=== PATIENT | male | born 1955 | race Caucasian/White ===

== ENCOUNTER 2021-01-19 10:22 | Inpatient (IN) | payer BC ==
--- NOTE | 2021-01-19 10:48 | ED ---
General Adult HPI - General Chief complaint: Chest Pain Stated complaint: Abd EKG/sent by PCP Time Seen by Provider: 01/19/21 10:25 Source: patient Mode of arrival: ambulatory Limitations: no limitations - History of Present Illness Initial comments: Dictation was produced using [employer] dictation software. please excuse any grammatical, word or spelling errors. Chief Complaint: 65-year-old male presents to the emergency department for heart block History of Present Illness: Is 65-year-old male who has past medical history of hypertension and he presents to the emergency department from primary care physician's office for heart block. Patient was initially seen in the primary care physician's office for possible Lyme disease. [place]. He discovered that a tick was on his right trapezius area. He is not prolonged at tick was on their however is having pain. Patient has no history of bradycardia or cardiology disease. He takes anti-hypertensive medications. Patient states he's been feeling rather fatigued however has not noticed any lightheadedness dizziness. He was seen at primary care physician's office and was noted to have bradycardia and complete heart block. The ROS documented in this emergency department record has been reviewed and confirmed by me. Those systems with pertinent positive or negative responses have been documented in the HPI. All other systems are other negative and/or noncontributory. PHYSICAL EXAM: General Impression: Alert and oriented x3, not in acute distress HEENT: Normocephalic atraumatic, extra-ocular movements intact, pupils equal and reactive to light bilaterally, mucous membranes moist. Cardiovascular: Heart regular rate and rhythm Chest: Able to complete full sentences, no retractions, no tachypnea Abdomen: abdomen soft, non-tender, non-distended, no organomegaly Musculoskeletal: Pulses present and equal in all extremities, no peripheral edema Motor: no focal deficits noted Neurological: CN II-XII grossly intact, no focal motor or sensory deficits noted Skin: Intact with no visualized rashes Psych: Normal affect and mood ED course: 65-year-old male presents to the emergency department for heart block. As upon arrival shows heart rate of 34, rest of vital signs within acceptable limits. He did take a picture of the tick and it does look like the Ixodes tick. EKG shows third-degree heart block. Clinical presentation highly suspicious of heart block secondary to Lyme disease patient started on IV ceftriaxone. Lyme carditis. Case was discussed emergently with cardiology. They reviewed EKG and evaluated the patient at bedside. Patient is well-appearing with stable vital signs besides the bradycardia. Car diology does not feel patient needs to be admitted to intensive care unit. Patient started on ceftriaxone. Patient will be admitted for cardiology monitoring, ID consult EKG interpretation: Ventricular rate 34, AV dissociation, QRS 86, QTC 375. No LA prolongation, no QTC prolongation, no ST or T-wave changes noted. EKG indicative of third degree heart block. - Related Data Home Medications Medication Instructions Recorded Confirmed Aspirin EC [Ecotrin] 81 mg PO HS 03/02/15 01/19/21 Multivitamins, Thera [Theragran] 1 tab PO DAILY 03/02/15 01/19/21 [place]-3 Fatty Acids/Fish Oil [Fish 1 cap PO DAILY 03/02/15 01/19/21 Oil 1,000 mg Softgel] amLODIPine BESYLATE/BENAZEPRIL 1 cap PO BID 03/02/15 01/19/21 [Amlodipine-Benazepril 5-10 mg] Cetirizine HCl [Zyrtec] 10 mg PO HS 01/19/21 01/19/21 Potassium Gluconate 99 mg PO DAILY 01/19/21 01/19/21 Allergies Allergy/AdvReac Type Severity Reaction Status Date / Time No Known Allergies Allergy Verified 01/19/21 11:21 Review of Systems ROS Statement: Those systems with pertinent positive or pertinent negative responses have been documented in the HPI. ROS Other: All systems not noted in ROS Statement are negative. Past Medical History Past Medical History: Hypertension History of Any Multi-Drug Resistant Organisms: None Reported Additional Past Surgical History / Comment(s): VASECTOMY, REPAIR LIGAMENTS LEFT ELBOW. Past Anesthesia/Blood Transfusion Reactions: No Reported Reaction Past Psychological History: No Psychological Hx Reported Smoking Status: Never smoker Past Alcohol Use History: None Reported Past Drug Use History: None Reported - Past Family History Mother Family Medical History: No Reported History General Exam Limitations: no limitations Course Vital Signs 01/19/21 01/19/21 10:24 11:30 Temperature 98.1 F Pulse Rate 34 L 31 L Respiratory 16 19 Rate Blood Pressure 167/58 115/69 O2 Sat by Pulse 96 96 Oximetry Medical Decision Making - Lab Data Result diagrams: 01/19/21 10:51 01/19/21 10:51 Lab Results 01/19/21 01/19/21 01/19/21 Range/Units 10:51 10:51 10:51 WBC 6.6 (3.8-10.6) k/uL RBC 4.89 (4.30-5.90) m/uL Hgb 15.1 (13.0-17.5) gm/dL Hct 43.8 (39.0-53.0) % MCV 89.5 (80.0-100.0) fL MCH 30.8 (25.0-35.0) pg MCHC 34.4 (31.0-37.0) g/dL RDW 13.5 (11.5-15.5) % Plt Count 198 (150-450) k/uL MPV 7.0 Neutrophils % 66 % Lymphocytes % 22 % Monocytes % 6 % Eosinophils % 3 % Basophils % 1 % Neutrophils # 4.3 (1.3-7.7) k/uL Lymphocytes # 1.5 (1.0-4.8) k/uL Monocytes # 0.4 (0-1.0) k/uL Eosinophils # 0.2 (0-0.7) k/uL Basophils # 0.1 (0-0.2) k/uL PT 10.0 (9.0-12.0) sec INR 0.9 (<1.2) APTT 22.5 (22.0-30.0) sec Sodium 140 (137-145) mmol/L Potassium 4.2 (3.5-5.1) mmol/L Chloride 107 (98-107) mmol/L Carbon Dioxide 27 (22-30) mmol/L Anion Gap 6 mmol/L BUN 22 H (9-20) mg/dL Creatinine 0.76 (0.66-1.25) mg/dL Est GFR (CKD-EPI)AfAm >90 (>60 ml/min/1.73 sqM) Est GFR (CKD-EPI)NonAf >90 (>60 ml/min/1.73 sqM) Glucose 115 H (74-99) mg/dL Plasma Lactic Acid Moody (0.7-2.0) mmol/L Calcium 9.7 (8.4-10.2) mg/dL Magnesium 1.9 (1.6-2.3) mg/dL 01/19/21 Range/Units 10:51 WBC (3.8-10.6) k/uL RBC (4.30-5.90) m/uL Hgb (13.0-17.5) gm/dL Hct (39.0-53.0) % MCV (80.0-100.0) fL MCH (25.0-35.0) pg MCHC (31.0-37.0) g/dL RDW (11.5-15.5) % Plt Count (150-450) k/uL MPV Neutrophils % % Lymphocytes % % Monocytes % % Eosinophils % % Basophils % % Neutrophils # (1.3-7.7) k/uL Lymphocytes # (1.0-4.8) k/uL Monocytes # (0-1.0) k/uL Eosinophils # (0-0.7) k/uL Basophils # (0-0.2) k/uL PT (9.0-12.0) sec INR (<1.2) APTT (22.0-30.0) sec Sodium (137-145) mmol/L Potassium (3.5-5.1) mmol/L Chloride (98-107) mmol/L Carbon Dioxide (22-30) mmol/L Anion Gap mmol/L BUN (9-20) mg/dL Creatinine (0.66-1.25) mg/dL Est GFR (CKD-EPI)AfAm (>60 ml/min/1.73 sqM) Est GFR (CKD-EPI)NonAf (>60 ml/min/1.73 sqM) Glucose (74-99) mg/dL Plasma Lactic Acid Moody 0.8 (0.7-2.0) mmol/L Calcium (8.4-10.2) mg/dL Magnesium (1.6-2.3) mg/dL Critical Care Time Critical Care Time: Yes Total Critical Care Time: 33 Disposition Clinical Impression: Heart block, Lyme disease Disposition: ADMITTED IP TO THIS [facility] Condition: Critical Referrals: Catalino Marin MD [Primary Care Provider] - 1-2 days
[2021-01-19] MEDS ORDERED: cefTRIAXone IN SWFI 1,000 MG/10 ML SYRINGE IVP STA (10:55)
[2021-01-19] MEDS ORDERED: cefTRIAXone IN SWFI 1,000 MG/10 ML SYRINGE IVP ONE (11:00)
[2021-01-19] MEDS ORDERED: DOXYCYCLINE 100 MG CAP PO SCH (11:00)
[2021-01-19 11:08] LABS: Basophils # (A) 0.1 k/uL (0-0.2); Basophils % (A) 1 %; Eosinophils # (A) 0.2 k/uL (0-0.7); Eosinophils % (A) 3 %; HCT 43.8 % (39.0-53.0); HGB 15.1 gm/dL (13.0-17.5); Lymphocytes # (A) 1.5 k/uL (1.0-4.8); Lymphocytes % (A) 22 %; MCH 30.8 pg (25.0-35.0); MCHC 34.4 g/dL (31.0-37.0); MCV 89.5 fL (80.0-100.0); Monocytes # (A) 0.4 k/uL (0-1.0); Monocytes % (A) 6 %; Neutrophils # (A) 4.3 k/uL (1.3-7.7); Neutrophils % (A) 66 %; Platelet Count 198 k/uL (150-450); RBC 4.89 m/uL (4.30-5.90); RDW 13.5 % (11.5-15.5); WBC 6.6 k/uL (3.8-10.6)
[2021-01-19 11:16] LABS: African American GFR (CKD) >90 (>60 ml/min/1.73 sqM); Anion Gap 6 mmol/L; Blood Urea Nitrogen 22 mg/dL (9-20); Calcium 9.7 mg/dL (8.4-10.2); Carbon Dioxide 27 mmol/L (22-30); Chloride 107 mmol/L (98-107); Glucose 115 mg/dL (74-99); Magnesium 1.9 mg/dL (1.6-2.3); Non-African American GFR(CKD) >90 (>60 ml/min/1.73 sqM); Potassium 4.2 mmol/L (3.5-5.1); Sodium 140 mmol/L (137-145)
--- NOTE | 2021-01-19 11:23 | XR ---
EXAMINATION TYPE: XR chest 1V portable DATE OF EXAM: 01/19/2021 COMPARISON: NONE HISTORY: Bradycardia and heart block TECHNIQUE: Single frontal view of the chest is obtained. FINDINGS: Heart size is enlarged. Atherosclerotic tortuous aorta. No pleural effusion, focal consoli dation or pneumothorax is seen. The right costophrenic angle is not visualized laterally. IMPRESSION: 1. Cardiomegaly and atherosclerotic aorta. 2. The Right lateral costophrenic angle is not visualized. No acute pulmonary disease.
[2021-01-19 11:29] LABS: INR 0.9 (<1.2); Partial Thromboplastin Time 22.5 sec (22.0-30.0)
[2021-01-19] MEDS ORDERED: NALOXONE 0.4 MG/ML 1 ML VIAL IV PRN (11:38)
--- NOTE | 2021-01-19 11:57 | P.CRDCN ---
History of Present Illness History of present illness: HISTORY OF PRESENTING ILLNESS This is a pleasant 65-year-old male past medical history significant for hypertension. 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 We have been asked to see in consultation for heart block. He presented to to his PCPs office this morning after finding a tick on his neck. He was found to have a low heart rate and an EKG obtained revealed A-V dissociation. He was sent to the emergency department with his . He is seen and examined sitting up on the stretcher in no acute distress. He has no symptoms of chest pain, shortness of breath, dizziness or palpitations. He states he may have been more fatigued last night than usual however this is not even thought to be significant per his . EKG obtained here again reveals complete A-V dissociation with heart rate of 34. Chest x-ray reveals cardiomegaly and atherosclerotic aorta. Laboratory data reviewed, CBC unremarkable, sodium 140, potassium 4.2, creatinine 0.76, magnesium 1.9, troponin negative 1 and TSH 1.56. He was given one dose of Rocephin on admission. Infectious disease is consulted to see the patient as well. Continue cardiac medications include amlodipine/benazepril 5/10 mg twice a day and aspirin 81 mg daily. REVIEW OF SYSTEMS At the time of my exam: CONSTITUTIONAL: Denies fever or chills. CARDIOVASCULAR: Denies chest pain, shortness of breath, orthopnea, PND or palpitations. RESPIRATORY: Denies cough. GASTROINTESTINAL: Denies abdominal pain, diarrhea, constipation, nausea or vomiting. MUSCULOSKELETAL: Denies myalgias. NEUROLOGIC: Denies numbness, tingling, headacbe or weakness. ENDOCRINE: Denies fatigue, weight change, polydipsia or polyurina. GENITOURINARY: Denies burning, hematuria or urgency with micturation. HEMATOLOGIC: Denies history of anemia or bleeding. PHYSICAL EXAMINATION Blood pressure 115/69 heart rate 31 afebrile and maintaining oxygen saturation on room air. CONSTITUTIONAL: No apparent distress. HEENT: Head is normocephalic. Pupils are equal, round. Sclerae anicteric. Mucous membranes of the mouth are moist. No JVD. No carotid bruit. CHEST EXAMINATION: Lungs are clear to auscultation. No chest wall tenderness is noted on palpation or with deep breathing. HEART EXAMINATION: Regular, slow rate and rhythm. S1, S2 heard. Soft systolic ejection murmur at the base, no gallops or rub. ABDOMEN: Soft, nontender. Positive bowel sounds. EXTREMITIES: 2+ peripheral pulses, no lower extremity edema and no calf tenderness. NEUROLOGIC EXAMINATION: Patient is awake, alert and oriented x3. ASSESSMENT Incomplete heart block, asymptomatic and hemodynamically stable Recent tick bite Hypertension Obesity, BMI 33 PLAN Continue ongoing close telemetry monitoring. If in fact the patient has Lyme disease this is a reversible cause for complete heart block. ID is following and ceftriaxone has been initiated. We recommend close monitoring and pacer pads in place in the event he becomes unstable or symptomatic. Avoid all rate lowering medications. Obtain 2-D echocardiogram and Doppler study to assess cardiac structure and function. Further recommendations to follow based on clinical course. Thank you kindly for this consultation. Nurse Practitioner note has been reviewed, I agree with a documented findings and plan of care. Patient was seen and examined. Past Medical History Past Medical History: Hypertension History of Any Multi-Drug Resistant Organisms: None Reported Additional Past Surgical History / Comment(s): VASECTOMY, REPAIR LIGAMENTS LEFT ELBOW. Past Anesthesia/Blood Transfusion Reactions: No Reported Reaction Past Psychological History: No Psychological Hx Reported Smoking Status: Never smoker Past Alcohol Use History: None Reported Past Drug Use History: None Reported - Past Family History Mother Family Medical History: No Reported History Medications and Allergies Home Medications Medication Instructions Recorded Confirmed Type Aspirin EC [Ecotrin] 81 mg PO HS 03/02/15 01/19/21 History Multivitamins, Thera [Theragran] 1 tab PO DAILY 03/02/15 01/19/21 History [place]-3 Fatty Acids/Fish Oil [Fish 1 cap PO DAILY 03/02/15 01/19/21 History Oil 1,000 mg Softgel] amLODIPine BESYLATE/BENAZEPRIL 1 cap PO BID 03/02/15 01/19/21 History [Amlodipine-Benazepril 5-10 mg] Cetirizine HCl [Zyrtec] 10 mg PO HS 01/19/21 01/19/21 History Potassium Gluconate 99 mg PO DAILY 01/19/21 01/19/21 History Allergies Allergy/AdvReac Type Severity Reaction Status Date / Time No Known Allergies Allergy Verified 01/19/21 11:21 Physical Exam Vitals: Vital Signs Temp Pulse Resp BP Pulse Ox 01/19/21 10:24 98.1 F 34 L 16 167/58 96 Intake and Output 01/18/21 01/19/21 01/19/21 22:59 06:59 14:59 Other: Weight 106.594 kg Results 01/19/21 10:51 01/19/21 10:51 CBC 01/19/21 Range/Units 10:51 WBC 6.6 (3.8-10.6) k/uL RBC 4.89 (4.30-5.90) m/uL Hgb 15.1 (13.0-17.5) gm/dL Hct 43.8 (39.0-53.0) % Plt Count 198 (150-450) k/uL Current Medications Generic Name Dose Route Start Last Admin Trade Name Freq PRN Reason Stop Dose Admin Ceftriaxone Sodium 2 gm/ 50 mls @ 100 mls/hr 01/20/21 09:00 Sodium Chloride IVPB DAILY GUADALUPE Intake and Output 01/18/21 01/19/21 01/19/21 22:59 06:59 14:59 Other: Weight 106.594 kg Patient Weight 01/20/21 06:59 Weight 106.594 kg 01/19/21 10:51
[2021-01-19] MEDS ORDERED: ISOPROTERENOL IV SCH (20:15)
[2021-01-19] MEDS: ASPIRIN 81 MG PO SCH (20:40)
[2021-01-19] MEDS: LORATADINE 10 MG TAB PO SCH (20:40)
[2021-01-19] MEDS: lisinopriL 10 MG TAB PO SCH (20:40)
[2021-01-19] MEDS: amLODIPine 5 MG TAB PO SCH (20:40)
[2021-01-19 21:16] LABS: Glucose,Whole Blood 127 mg/dL (75-99)
[2021-01-19] MEDS: ISOPROTERENOL 1,000 MCG in DEXTROSE 5% IN WATER 250 ML IV SCH ×2 (21:31)
[2021-01-19] MEDS: SODIUM CHLORIDE 0.9% 1,000 ML IV SCH (21:37)
[2021-01-19] MEDS ORDERED: hydrALAZINE HCL 20 MG/ML 1 ML VIAL IVP PRN (22:16)
--- NOTE | 2021-01-19 23:23 | CONS ---
CONSULTATION DATE OF SERVICE: 01/19/2021 REASON FOR CONSULTATION: Lyme carditis. HISTORY OF PRESENT ILLNESS: The patient is a 65-year-old male who [place] about a week and a half ago. Patient mentioned he did have a couple of ticks on his leg that he brushed off and at the end of the trip, he has been examined. There was no tick or rash to him. The patient subsequently came back and noticed a small knot on his upper back area yesterday. The patient thought he was growing a mole and did not pay any attention to it. This morning the area slightly hurt. He asked his to check on it. The noticed there was a tick attached to him, which should pulled out with a tweezer. Patient had slight swelling and induration at the area. The patient subsequently went to see his primary care physician to get checked out. The patient did not have any symptoms of any fever or any chills. No chest pain, shortness of breath. No nausea, no vomiting. No dizziness. At the primary care physician's office, the patient was noticed to be bradycardic and did have AV dissociation. Subsequently, the patient was sent to the ER for further evaluation. The patient was started on Rocephin and has been admitted to the hospital for close monitoring. Infectious disease was consulted for further management. The patient has been afebrile. White count has been normal. Lyme serology has been requested, which is currently pending. REVIEW OF SYSTEMS: Positive points have been mentioned in HPI. Rest of systems are negative. PAST MEDICAL HISTORY: Hypertension. PAST SURGICAL HISTORY: Vasectomy, ligaments repaired left elbow. SOCIAL HISTORY: No smoking, drinking or drug use. FAMILY HISTORY: No pertinent findings noticed. ALLERGIES: No known drug allergies. MEDICATIONS: The patient is currently on Norvasc, aspirin, Rocephin 2 grams daily. He is on hydralazine, Zestril, Ferritin, Theragran, Narcan and IV fluid. PHYSICAL EXAMINATION: Blood pressure 155/70 with a pulse of 91, temperature 97.8. He is 96% on room air. General description is a middle-aged male lying in bed in no distress. No tachypnea or accessory muscles of respiration use. HEENT: Examination shows no pallor or scleral icterus. Oral mucous membranes dry. NECK: Trachea central. No thyromegaly. LUNGS: Unlabored breathing. Clear to auscultation. No wheeze or crackles. HEART S1, S2. Regular rate and rhythm. ABDOMEN: Soft, no tenderness. No guarding. No rigidity. EXTREMITIES: No edema of the feet. Examination right of the upper back area did have mild area of induration where the patient did have a tick attached with no surrounding redness or any drainage. NEUROLOGICAL: Patient is awake, alert, oriented x3. Mood and affect normal. LABS: Hemoglobin is 15.1, white count 6.6, BUN of 22, creatinine 0.76. DIAGNOSTIC IMPRESSION AND PLAN: Patient admitted in the hospital with recent tick bite which apparently has been attached for less than 24 hours. The patient did have a bradyarrhythmia with AV dissociation which is usually a feature of Lyme carditis with tick borne illnesses. The patient more likely has been exposed [place] and more likely responsible for his current symptomatology rather than the tick that was attached to him. PLAN: 1. We will follow the results of the Lyme serology. 2. Rocephin 2 g IV piggyback daily. 3. Close call cardiac monitoring. 4. We will follow on his clinical condition and further adjust medication if needed. Thank you for this consultation. We will follow this patient along with you. MMODL / IJN: [id number] /
[2021-01-20 04:29] LABS: Basophils # (A) 0.1 k/uL (0-0.2); Basophils % (A) 1 %; Eosinophils # (A) 0.1 k/uL (0-0.7); Eosinophils % (A) 1 %; HCT 44.3 % (39.0-53.0); HGB 14.3 gm/dL (13.0-17.5); Lymphocytes # (A) 1.2 k/uL (1.0-4.8); Lymphocytes % (A) 18 %; MCH 29.3 pg (25.0-35.0); MCHC 32.3 g/dL (31.0-37.0); MCV 90.8 fL (80.0-100.0); Monocytes # (A) 0.4 k/uL (0-1.0); Monocytes % (A) 6 %; Neutrophils % (A) 72 %; Platelet Count 182 k/uL (150-450); RBC 4.88 m/uL (4.30-5.90); RDW 13.9 % (11.5-15.5); WBC 6.9 k/uL (3.8-10.6)
[2021-01-20 04:45] LABS: ALT 28 U/L (4-49); AST 47 U/L (17-59); African American GFR (CKD) >90 (>60 ml/min/1.73 sqM); Albumin 4.1 g/dL (3.5-5.0); Alkaline Phosphatase 56 U/L (38-126); Anion Gap 7 mmol/L; Blood Urea Nitrogen 15 mg/dL (9-20); C Reactive Protein 0.7 mg/dL (<1.0); Carbon Dioxide 27 mmol/L (22-30); Chloride 103 mmol/L (98-107); Glucose 99 mg/dL (74-99); Magnesium 1.8 mg/dL (1.6-2.3); Non-African American GFR(CKD) >90 (>60 ml/min/1.73 sqM); Potassium 3.3 mmol/L (3.5-5.1); Sodium 137 mmol/L (137-145); Total Bilirubin 0.6 mg/dL (0.2-1.3); Total Protein 6.9 g/dL (6.3-8.2)
[2021-01-20] MEDS: POTASSIUM CHLORIDE ER 20 MEQ TAB.ER PO SCH ×2 (04:58→05:06)
[2021-01-20 05:19] LABS: Erythrocyte Sedimentation Rate 8 mm/hr (0-15)
[2021-01-20] MEDS ORDERED: Potassium Replacement Protocol 1 EACH MISC MISCELLANE PRN (06:45)
[2021-01-20] MEDS ORDERED: POTASSIUM CHLORIDE 10 MEQ in WATER FOR INJECTION 1 100ML.BAG IVPB SCH (07:00)
--- NOTE | 2021-01-20 08:17 | P.HPIM ---
History of Present Illness H&P Date: 01/20/21 Chief Complaint: AV heart block 65-year-old male is admitted to the hospital with AV heart block, and post tick bite possible lymes disease. Patient was sent to the emergency department for bradycardia with AV block. Patient was evaluated by emergency department revealing AV block dissociation. Patient has significant medical history of hypertension, past infection of Covid 19, and obesity. Patient was admitted with cardiology consult, cardiology saw patient in the emergency department, patient was admitted to 3 S. during the night patient had severe bradycardia in the 20s, cardiology was contacted patient was transferred to the intensive care unit. Patient was placed on isoproterenol for severe bradycardia, when evaluating patient this a.m. heart rate in the low 40s.Upon evaluation this a.m., patient resting comfortably in bed. Patient endorses mild fatigue. Patient denies fever, chills, shortness of breath, chest pain, palpitations, abdominal pain, nausea, vomiting or diarrhea. Awaiting recommendations from cardiology for possible pacemaker placement. Review of Systems Constitutional: Reports fatigue Ears, nose, mouth and throat: Reports as per HPI Cardiovascular: Reports as per HPI Respiratory: Reports as per HPI Gastrointestinal: Reports as per HPI Genitourinary: Reports as per HPI Musculoskeletal: Reports as per HPI Integumentary: Reports wounds (Trapezius post tick bite) Neurological: Reports as per HPI Psychiatric: Reports as per HPI Endocrine: Reports as per HPI Hematologic/Lymphatic: Reports as per HPI Allergic/Immunologic: Reports as per HPI Past Medical History Past Medical History: Hypertension Additional Past Medical History / Comment(s): basal cell Ca History of Any Multi-Drug Resistant Organisms: None Reported Additional Past Surgical History / Comment(s): VASECTOMY, REPAIR LIGAMENTS LEFT ELBOW. retina repaired Mohs surg.lt check Past Anesthesia/Blood Transfusion Reactions: No Reported Reaction Past Psychological History: No Psychological Hx Reported Smoking Status: Current every day smoker Past Alcohol Use History: None Reported Past Drug Use History: None Reported - Past Family History Mother Family Medical History: No Reported History Medications and Allergies Home Medications and Allergies Comment(s): Medications and allergies reviewed Home Medications Medication Instructions Recorded Confirmed Type Aspirin EC [Ecotrin] 81 mg PO HS 03/02/15 01/19/21 History Multivitamins, Thera [Theragran] 1 tab PO DAILY 03/02/15 01/19/21 History [place]-3 Fatty Acids/Fish Oil [Fish 1 cap PO DAILY 03/02/15 01/19/21 History Oil 1,000 mg Softgel] amLODIPine BESYLATE/BENAZEPRIL 1 cap PO BID 03/02/15 01/19/21 History [Amlodipine-Benazepril 5-10 mg] Cetirizine HCl [Zyrtec] 10 mg PO HS 01/19/21 01/19/21 History Potassium Gluconate 99 mg PO DAILY 01/19/21 01/19/21 History Allergies Allergy/AdvReac Type Severity Reaction Status Date / Time No Known Allergies Allergy Verified 01/19/21 11:21 Physical Exam Vitals: Vital Signs Temp Pulse Pulse Resp BP BP Pulse Ox 01/20/21 07:00 42 L 15 128/57 97 01/20/21 06:45 37 L 16 135/67 96 01/20/21 06:30 41 L 12 135/59 98 01/20/21 06:15 39 L 14 155/67 96 01/20/21 06:00 41 L 8 L 140/64 94 L 01/20/21 05:45 38 L 17 134/67 95 01/20/21 05:30 39 L 15 152/77 97 01/20/21 05:15 41 L 10 L 149/62 94 L 01/20/21 05:00 44 L 12 147/58 95 01/20/21 04:45 39 L 14 138/63 96 01/20/21 04:30 37 L 14 135/57 94 L 01/20/21 04:15 37 L 16 147/60 96 01/20/21 04:00 38 L 12 144/61 95 01/20/21 03:45 39 L 16 147/75 95 01/20/21 03:30 37 L 16 144/56 96 01/20/21 03:15 37 L 12 150/92 95 01/20/21 03:00 39 L 12 115/64 95 01/20/21 02:45 42 L 20 130/54 95 01/20/21 02:30 39 L 16 122/55 94 L 01/20/21 02:15 38 L 26 H 127/47 94 L 01/20/21 02:00 37 L 18 126/57 94 L 01/20/21 01:45 46 L 20 120/64 95 01/20/21 01:30 37 L 18 124/53 95 01/20/21 01:15 38 L 20 123/52 95 01/20/21 01:00 39 L 26 H 121/47 95 01/20/21 00:45 39 L 16 133/52 94 L 01/20/21 00:30 37 L 14 132/65 94 L 01/20/21 00:23 39 L 9 L 132/65 95 01/20/21 00:15 41 L 12 123/51 98 01/20/21 00:00 97.8 F 37 L 18 128/55 90 L 01/19/21 23:45 41 L 12 134/62 91 L 01/19/21 23:30 42 L 20 129/54 89 L 01/19/21 23:15 41 L 20 142/63 89 L 01/19/21 23:00 41 L 9 L 141/67 98 01/19/21 22:45 39 L 14 155/74 98 01/19/21 22:30 46 L 14 166/68 01/19/21 22:15 41 L 18 154/141 95 01/19/21 22:00 41 L 24 167/128 97 01/19/21 21:45 44 L 14 148/118 97 01/19/21 21:30 31 L 16 137/68 96 01/19/21 21:15 31 L 20 137/68 97 01/19/21 21:10 21 01/19/21 19:50 97.8 F 29 L 17 165/71 96 01/19/21 19:02 31 L 16 176/72 97 01/19/21 16:07 29 L 18 157/66 96 01/19/21 14:41 31 L 19 135/94 97 01/19/21 13:30 29 L 17 131/59 97 01/19/21 12:49 30 L 18 142/57 97 01/19/21 11:30 31 L 19 115/69 96 01/19/21 10:24 98.1 F 34 L 16 167/58 96 Intake and Output 01/19/21 01/20/21 01/20/21 22:59 06:59 14:59 Intake Total 49.69 160 20 Output Total 400 400 0 Balance -350.31 -240 20 Intake: Intake, IV Titration 49.69 160 20 Amount Isoproterenol 1,000 mcg 9.69 In Dextrose 5% in Water 250 ml @ Per Protocol IV .[facility] Rx#:[id number] Sodium Chloride 0.9% 1, 40 160 20 000 ml @ 20 mls/hr IV . Q24H [facility] Rx#:[id number] Output: Urine 400 400 0 Other: Voiding Method Urinal Urinal Weight 106.594 kg 112.5 kg - Constitutional General appearance: cooperative, obese - EENT Eyes: EOMI, PERRLA, normal appearance ENT: normal oropharynx Ears: bilateral: normal - Neck Neck: normal ROM Carotids: bilateral: upstroke normal - Respiratory Respiratory: bilateral: CTA - Cardiovascular AV heart block disassociation Heart rate: 42 Rhythm: regular Heart sounds: normal: S1, S2 radial pulse Peripheral Pulses: bilateral: Normal dorsalis pedis Peripheral Pulses: bilateral: Normal - Gastrointestinal General gastrointestinal: normal bowel sounds - Integumentary Integumentary: normal turgor - Neurologic Neurologic: CNII-XII intact - Musculoskeletal Musculoskeletal: gait normal - Psychiatric Psychiatric: A&O x's 3, appropriate affect, intact judgment & insight Results CBC & Chem 7: 01/20/21 04:02 01/20/21 04:02 Labs: Abnormal Lab Results - Last 24 Hours (Table) 01/19/21 01/19/21 01/20/21 Range/Units 10:51 21:14 04:02 Potassium 3.3 L (3.5-5.1) mmol/L BUN 22 H (9-20) mg/dL Glucose 115 H (74-99) mg/dL POC Glucose (mg/dL) 127 H (75-99) mg/dL Chest x-ray: report reviewed Thrombosis Risk Factor Assmnt - Choose All That Apply Each Risk Factor Represents 2 Points: Age 61-74 years Thrombosis Risk Factor Assessment Total Risk Factor Score: 2 Thrombosis Risk Factor Assessment Level: Low Risk Assessment and Plan Assessment: AV heart block disassociation post tick bite, possible Lyme disease Hypertension hypokalemia History of Covid infection obesity full code Plan: AV heart block disassociation, consultation with cardiology for recommendations and treatment plan, Continue isoproterenol drip per cardiology post tick bite, awaiting lymes serology panel, consultation with infectious disease, Continue IV Rocephin Hypertension, continue antihypertensives. Continue to monitor vital signs and diagnostic testing results continue home medications further recommendations to come patient patient's clinical condition Time with Patient: Greater than 30
[2021-01-20] MEDS: lisinopriL 10 MG TAB PO SCH ×2 (08:57→20:52)
[2021-01-20] MEDS: MULTIVITAMINS, THERA 1 EACH TAB PO SCH (08:57)
[2021-01-20] MEDS: amLODIPine 5 MG TAB PO SCH ×2 (08:57→20:52)
[2021-01-20] MEDS ORDERED: NON FORMULARY DRUG (Potassium Gluconate [Potassium Gluconate] 99 MG Tablet.Er) PO SCH (09:00)
[2021-01-20] MEDS ORDERED: NON FORMULARY DRUG (Omega-3 Fatty Acids/Fish Oil [Fish Oil 1,000 Mg Softgel] 1 EACH Capsul PO SCH (09:00)
--- NOTE | 2021-01-20 12:37 | P.PN ---
Subjective Progress Note Date: 01/20/21 HISTORY OF PRESENTING ILLNESS This is a pleasant 65-year-old male past medical history significant for hypertension. 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 We have been asked to see in consultation for heart block. He presented to to his PCPs office this morning after finding a tick on his neck. He was found to have a low heart rate and an EKG obtained revealed A-V dissociation. He was sent to the emergency department with his . He is seen and examined sitting up on the stretcher in no acute distress. He has no symptoms of chest pain, shortness of breath, dizziness or palpitations. He states he may have been more fatigued last night than usual however this is not even thought to be significant per his . EKG obtained here again reveals complete A-V dissociation with heart rate of 34. Chest x-ray reveals cardiomegaly and atherosclerotic aorta. Laboratory data reviewed, CBC unremarkable, sodium 140, potassium 4.2, creatinine 0.76, magnesium 1.9, troponin negative 1 and TSH 1.56. He was given one dose of Rocephin on admission. Infectious disease is consulted to see the patient as well. Continue cardiac medications include amlodipine/benazepril 5/10 mg twice a day and aspirin 81 mg daily. 01/20/2021 Patient examined this morning in the ICU. Patient denies chest pain or pressure. Denies shortness of breath. Denies dizziness or lightheadedness. Patient remains in complete heart block with heart rate in the 30-40s. Patients heart rate was in the 20s overnight. Patient was started on Isoproterenol per Dr. Gamez. PHYSICAL EXAMINATION Blood pressure 115/69 heart rate 31 afebrile and maintaining oxygen saturation on room air. CONSTITUTIONAL: No apparent distress. HEENT: Head is normocephalic. Pupils are equal, round. Sclerae anicteric. Mucous membranes of the mouth are moist. No JVD. No carotid bruit. CHEST EXAMINATION: Lungs are clear to auscultation. No chest wall tenderness is noted on palpation or with deep breathing. HEART EXAMINATION: Regular, slow rate and rhythm. S1, S2 heard. Soft systolic ejection murmur at the base, no gallops or rub. ABDOMEN: Soft, nontender. Positive bowel sounds. EXTREMITIES: 2+ peripheral pulses, no lower extremity edema and no calf tenderness. NEUROLOGIC EXAMINATION: Patient is awake, alert and oriented x3. ASSESSMENT Complete heart block, asymptomatic and hemodynamically stable Recent tick bite Hypertension Obesity, BMI 33 Hypokalemia PLAN Continue ongoing close telemetry monitoring. If in fact the patient has Lyme disease this is a reversible cause for complete heart block ID is following and ceftriaxone has been initiated. We recommend close monitoring and pacer pads in place in the event he becomes unstable or symptomatic. Avoid all rate lowering medications. 2D echo ordered. Await results. Replace potassium Further recommendations pending patient course Nurse Practitioner note has been reviewed, I agree with a documented findings and plan of care. Patient was seen and examined. Objective - Vital Signs Vital signs: Vital Signs Temp 98.1 F 01/20/21 12:00 Pulse 38 L 01/20/21 12:00 Resp 11 L 01/20/21 12:00 BP 147/62 01/20/21 12:00 Pulse Ox 95 01/20/21 12:00 Intake & Output 01/19/21 01/20/21 01/20/21 18:59 06:59 18:59 Intake Total 209.69 120 Output Total 300 800 0 Balance -300 -590.31 120 Weight 106.594 kg 112.5 kg Intake: IV 100 Sodium Chloride 0.9% 1, 100 000 ml @ 20 mls/hr IV . Q24H [facility] Rx#:[id number] Intake, IV Titration 209.69 20 Amount Isoproterenol 1,000 mcg 9.69 In Dextrose 5% in Water 250 ml @ Per Protocol IV .Q0M [facility] Rx#:[id number] Sodium Chloride 0.9% 1, 200 20 000 ml @ 20 mls/hr IV . Q24H [facility] Rx#:[id number] Output: Urine 300 800 0 Other: Voiding Method Urinal Urinal - Labs CBC & Chem 7: 01/20/21 04:02 01/20/21 04:02 Labs: Abnormal Lab Results - Last 24 Hours (Table) 01/19/21 01/20/21 Range/Units 21:14 04:02 Potassium 3.3 L (3.5-5.1) mmol/L POC Glucose (mg/dL) 127 H (75-99) mg/dL
[2021-01-20] MEDS: ISOPROTERENOL 1,000 MCG in DEXTROSE 5% IN WATER 250 ML IV SCH ×2 (13:11)
[2021-01-20] MEDS: SODIUM CHLORIDE 0.9% 1,000 ML IV SCH (13:14)
--- NOTE | 2021-01-20 15:56 | ECHOF ---
Referral Reason:complete heart block MEASUREMENTS -------- HEIGHT: 182.9 cm WEIGHT: 106.6 kg BP: IVSd: 1.1 cm (0.6 - 1.1) LVIDd: 5.5 cm (3.9 - 5.3) LVPWd: 1.0 cm (0.6 - 1.1) EDV(Teich): 149 ml IVSs: 1.8 cm LVIDs: 3.0 cm LVPWs: 1.8 cm %IVS Thck: 59 % ESV(Teich): 35 ml EF(Teich): 77 % %FS: 46 % SV(Teich): 115 ml LA Diam: 4.4 cm (2.7 - 3.8) RVIDd: 3.2 cm (< 3.3) LALs A4C: 5.8 cm LAAs A4C: 22.3 cm LAESV A-L A4C: 72 ml LAESV MOD A4C: 68 ml LALs A2C: 6.0 cm LAAs A2C: 26.5 cm LAESV A-L A2C: 100 ml LAESV MOD A2C: 97 ml LAESV(A-L): 86 ml LAESV Index (A-L): 37.70 ml/m Ao Diam: 3.5 cm (2.0 - 3.7) LA Diam: 4.5 cm (2.7 - 3.8) AV Cusp: 2.0 cm (1.5 - 2.6) EPSS: 0.5 cm MV E Mckinley: 1.22 m/s MV DecT: 175 ms MV Dec [place]: 7.0 m/s MV A Mckinley: 0.66 m/s MV E/A Ratio: 1.84 MV PHT: 51 ms TR Vmax: 2.96 m/s TR maxP.07 mmHg RAP: 5.00 mmHg RVSP: 40.07 mmHg MV EF SLOPE: 110.07 mm/s (70 - 150) MV EXCURSION: 19.18 mm (> 18.000) FINDINGS -------- Undetermined rhythm. This was a technically good study. The left ventricular size is normal. Overall left ventricular systolic function is low-normal with, an EF between 50 - 55 %. The right ventricle is normal in size. LA is moderately dilated 34-39 ml/m2 The right atrial size is normal. The aortic valve is trileaflet, and appears structurally normal. No aortic stenosis or regurgitation. Mild mitral regurgitation is present. Mild tricuspid regurgitation present. There is mild pulmonary hypertension. The right ventricular systolic pressure, as measured by Doppler, is 40.07mmHg. There is no pulmonic regurgitation present. The aortic root size is normal. There is no pericardial effusion. CONCLUSIONS -------- 1. The left ventricular size is normal. 2. Overall left ventricular systolic function is low-normal with, an EF between 50 - 55 %. 3. The right ventricle is normal in size. 4. LA is moderately dilated 34-39 ml/m2 5. The right atrial size is normal. 6. The aortic valve is trileaflet, and appears structurally normal. No aortic stenosis or regurgitati on. 7. Mild mitral regurgitation is present. 8. Mild tricuspid regurgitation present. 9. There is mild pulmonary hypertension. 10. The right ventricular systolic pressure, as measured by Doppler, is 40.07mmHg. 11. There is no pulmonic regurgitation present. 12. The aortic root size is normal. 13. There is no pericardial effusion. PAPER ROLL MACHINE OPERATOR: Cynthia Wellington RDCS
[2021-01-20] MEDS: LORATADINE 10 MG TAB PO SCH (20:52)
[2021-01-20] MEDS: ASPIRIN 81 MG PO SCH (20:52)
--- NOTE | 2021-01-20 23:16 | PN ---
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 INTERVAL HISTORY: The patient is currently afebrile. The patient has been moved to ICU because of his significant bradyarrhythmia. The patient overall is feeling better. The patient denies having any chest pain or shortness of breath or cough. No nausea, vomiting, abdominal pain or diarrhea. PHYSICAL EXAMINATION: Blood pressure 145/72 with a pulse of , temperature 97.7. He is 95% on room air. General description is a middle-aged male lying in bed in no distress. RESPIRATORY SYSTEM: Unlabored breathing. Clear to auscultation anteriorly. HEART: S1, S2. Regular rate and rhythm. ABDOMEN: Soft. No tenderness. LABS: Hemoglobin 14.3, white count 6.9, BUN of 15, creatinine 0.75. Lyme serologies are currently pending. 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 Serology is pending. Patient is covered with Rocephin 2 grams daily. Other etiologies of are being considered. Continue with supportive care. MMODL / IJN: [id number] /
[2021-01-21] MEDS: ISOPROTERENOL 1,000 MCG in DEXTROSE 5% IN WATER 250 ML IV SCH ×4 (04:48→20:37)
[2021-01-21 05:10] LABS: Basophils % (A) 1 %; Eosinophils # (A) 0.2 k/uL (0-0.7); Eosinophils % (A) 3 %; HCT 42.5 % (39.0-53.0); HGB 14.8 gm/dL (13.0-17.5); Lymphocytes # (A) 1.1 k/uL (1.0-4.8); Lymphocytes % (A) 18 %; MCH 31.4 pg (25.0-35.0); MCHC 34.9 g/dL (31.0-37.0); Mean Platelet Volume 6.9; Monocytes # (A) 0.4 k/uL (0-1.0); Monocytes % (A) 6 %; Neutrophils % (A) 70 %; Platelet Count 189 k/uL (150-450); RBC 4.72 m/uL (4.30-5.90); RDW 13.4 % (11.5-15.5); WBC 5.8 k/uL (3.8-10.6)
[2021-01-21 05:23] LABS: ALT 28 U/L (4-49); AST 44 U/L (17-59); African American GFR (CKD) >90 (>60 ml/min/1.73 sqM); Albumin 3.8 g/dL (3.5-5.0); Alkaline Phosphatase 53 U/L (38-126); Anion Gap 7 mmol/L; Blood Urea Nitrogen 16 mg/dL (9-20); Calcium 8.9 mg/dL (8.4-10.2); Carbon Dioxide 25 mmol/L (22-30); Chloride 105 mmol/L (98-107); Glucose 99 mg/dL (74-99); Non-African American GFR(CKD) >90 (>60 ml/min/1.73 sqM); Potassium 3.8 mmol/L (3.5-5.1); Sodium 137 mmol/L (137-145); Total Bilirubin 0.6 mg/dL (0.2-1.3); Total Protein 6.6 g/dL (6.3-8.2)
[2021-01-21] MEDS ORDERED: Potassium Replacement Protocol 1 EACH MISC MISCELLANE PRN (05:41)
[2021-01-21] MEDS ORDERED: POTASSIUM CHLORIDE ER 20 MEQ TAB.ER PO SCH (06:00)
--- NOTE | 2021-01-21 07:12 | P.PN ---
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 Patient was sent to the emergency department for bradycardia with AV block. Patient was evaluated by emergency department revealing AV block dissociation. Patient has significant medical history of hypertension, past infection of Covid 19, and obesity. Patient was admitted with cardiology consult, cardiology saw patient in the emergency department, patient was admitted to 3 S. during the night patient had severe bradycardia in the 20s, cardiology was contacted patient was transferred to the intensive care unit. Patient was placed on isoproterenol for severe bradycardia, when evaluating patient this a.m. heart rate in the low 40s.Upon evaluation this a.m., patient resting comfortably in bed. Patient endorses mild fatigue. Patient denies fever, chills, shortness of breath, chest pain, palpitations, abdominal pain, nausea, vomiting or diarrhea. Awaiting recommendations from cardiology for possible pacemaker placement. 01/21/2021 Evaluated a 65-year-old male this a.m., resting comfortably in bed. Patient denies any complaints at this time. Patient continues to have significant bradycardia arrhythmia, continue isoproterenol drip at a low dose, per cardiolo gy. Awaiting Lyme serology diagnostic testing results. Awaiting recommendations from cardiology for possible pacemaker. Objective - Vital Signs Vital signs: Vital Signs Temp 98.0 F 01/21/21 04:00 Pulse 39 L 01/21/21 07:00 Resp 28 H 01/21/21 06:00 BP 132/64 01/21/21 07:00 Pulse Ox 95 01/21/21 07:00 Intake & Output 01/20/21 01/21/21 01/21/21 18:59 06:59 18:59 Intake Total 494.855 458.935 20 Output Total 900 725 Balance -405.145 -266.065 20 Weight 112.9 kg Intake: IV 240 220 20 Sodium Chloride 0.9% 1, 240 220 20 000 ml @ 20 mls/hr IV . Q24H [facility] Rx#:[id number] Intake, IV Titration 254.855 238.935 Amount Isoproterenol 1,000 mcg 234.855 238.935 In Dextrose 5% in Water 250 ml @ Per Protocol IV .Q0M [facility] Rx#:[id number] Sodium Chloride 0.9% 1, 20 000 ml @ 20 mls/hr IV . Q24H [facility] Rx#:[id number] Output: Urine 900 725 Other: Voiding Method Urinal Urinal # Voids 0 0 - Constitutional General appearance: Present: cooperative - EENT Eyes: Present: EOMI, PERRLA ENT: Present: normal oropharynx Ears: bilateral: normal - Neck Neck: Present: normal ROM Carotids: bilateral: upstroke normal Thyroid: bilateral: normal size - Respiratory Respiratory: bilateral: CTA - Cardiovascular Details: A-V heart block Heart rate: 42 Rhythm: regular Heart sounds: normal: S1, S2 - Peripheral pulses radial pulse Peripheral Pulses: bilateral: Normal femoral Peripheral Pulses: bilateral: Normal - Gastrointestinal General gastrointestinal: Present: normal bowel sounds - Integumentary Integumentary: Present: normal turgor - Neurologic Neurologic: Present: CNII-XII intact - Musculoskeletal Musculoskeletal: Present: gait normal - Psychiatric Psychiatric: Present: A&O x's 3, appropriate affect, intact judgment & insight - Allied health notes Allied health notes reviewed: nursing - Labs CBC & Chem 7: 01/21/21 04:56 01/21/21 04:56 Assessment and Plan Assessment: AV heart block disassociation post tick bite, possible Lyme disease Hypertension hypokalemia History of Covid infection obesity full code Plan: AV heart block disassociation, consultation with cardiology for recommendations and treatment plan, Continue isoproterenol drip per cardiology post tick bite, awaiting lymes serology panel, consultation with infectious disease, Continue IV Rocephin Hypertension, continue antihypertensives. Continue to monitor vital signs and diagnostic testing results continue home medications further recommendations to come patient patient's clinical condition Time with Patient: Greater than 30
[2021-01-21] MEDS: lisinopriL 10 MG TAB PO SCH ×2 (08:09→20:37)
[2021-01-21] MEDS: MULTIVITAMINS, THERA 1 EACH TAB PO SCH (08:10)
[2021-01-21] MEDS: amLODIPine 5 MG TAB PO SCH ×2 (08:10→20:37)
--- NOTE | 2021-01-21 12:13 | P.PN ---
Subjective Progress Note Date: 01/21/21 Principal diagnosis: Complete heart block This is a very pleasant 65-year-old gentleman with a past medical history significant for hypertension who was admitted to the hospital with complete heart block. He did have a tick bite recently. Infectious disease on the case. The serology for Lyme disease was sent. An echocardiogram was performed and revealed normal left ventricular systolic function without significant valvular abnormalities. He was seen this morning. He has been maintaining heart rate in the 40s and good blood pressure on the current dose of Isuprel which is 1 mcg/m continuous infusion. He is not on any AV elaine erick agents. Thyroid tests were sent as well. The plan after discussing case with Dr. Mendez is probably 4 the patient either to undergo permanent pacemaker implantation with an alternative to had an external pacer with the wire in and wait for a few weeks before we decide about permanent pacemaker. Clinically the patient denies any symptoms of chest pain or chest discomfort or shortness of breath or dizziness or lightheadedness. Objective - Vital Signs Vital signs: Vital Signs Temp 98.1 F 01/21/21 08:00 Pulse 37 L 01/21/21 11:00 Resp 14 01/21/21 11:00 BP 142/72 01/21/21 11:00 Pulse Ox 92 L 01/21/21 11:00 Intake & Output 01/20/21 01/21/21 01/21/21 18:59 06:59 18:59 Intake Total 494.855 458.935 100 Output Total 900 725 300 Balance -405.145 -266.065 -200 Weight 112.9 kg Intake: IV 240 220 100 Sodium Chloride 0.9% 1, 240 220 100 000 ml @ 20 mls/hr IV . Q24H [facility] Rx#:[id number] Intake, IV Titration 254.855 238.935 Amount Isoproterenol 1,000 mcg 234.855 238.935 In Dextrose 5% in Water 250 ml @ Per Protocol IV .Q0M [facility] Rx#:[id number] Sodium Chloride 0.9% 1, 20 000 ml @ 20 mls/hr IV . Q24H [facility] Rx#:[id number] Output: Urine 900 725 300 Other: Voiding Method Urinal Urinal Urinal # Voids 0 0 - Constitutional General appearance: Present: no acute distress - Respiratory Respiratory: bilateral: CTA - Cardiovascular Rhythm: regular Heart sounds: normal: S1, S2 Abnormal Heart Sounds: Present: systolic murmur - Labs CBC & Chem 7: 01/21/21 04:56 01/21/21 04:56 Assessment and Plan Assessment: Assessment #1 complete heart block, reversible versus reversible #2 recent tick bite #3 hypertension Plan #1 continue the current dose of Isuprel #2 the echo showed normal LV function #3 follow-up with the patient
--- NOTE | 2021-01-21 17:33 | PN ---
PROGRESS NOTE DATE OF SERVICE: 01/21/2021 REASON FOR FOLLOWUP: 1. Tick bite. 2. Question of Lyme carditis. INTERVAL HISTORY: The patient is currently afebrile. The patient is breathing comfortably. The patient denies having any chest pain or shortness of breath or cough. No nausea, no vomiting, no abdominal pain or diarrhea. PHYSICAL EXAMINATION: Blood pressure 152/65, pulse of 42, temperature 98.1. He is 94% on room air. General description is a middle-aged male lying in bed in no distress. RESPIRATORY SYSTEM: Unlabored breathing. Clear to auscultation anteriorly. HEART: S1, S2. Regular rate and rhythm. ABDOMEN: Soft. No tenderness. LABS: Hemoglobin is 14.8, white count 5.8. BUN of 16, creatinine 0.77. Lyme serology is still pending. DIAGNOSTIC IMPRESSION AND PLAN: Patient admitted to hospital with a tick bite attached and also evidence of heart block with concern for possible Lyme endocarditis. Labs are still pending. Patient is covered with Rocephin. He did have multiple positive. Plan is for temporary pacemaker placement tomorrow. MMODL / IJN: [id number] /
[2021-01-21] MEDS: SODIUM CHLORIDE 0.9% 1,000 ML IV SCH (20:31)
[2021-01-21] MEDS: ASPIRIN 81 MG PO SCH (20:37)
[2021-01-21] MEDS: LORATADINE 10 MG TAB PO SCH (20:37)
[2021-01-22 04:56] LABS: Basophils # (A) 0.1 k/uL (0-0.2); Basophils % (A) 1 %; Eosinophils # (A) 0.3 k/uL (0-0.7); Eosinophils % (A) 5 %; HGB 15.5 gm/dL (13.0-17.5); Lymphocytes # (A) 1.4 k/uL (1.0-4.8); Lymphocytes % (A) 21 %; MCH 29.2 pg (25.0-35.0); MCV 88.7 fL (80.0-100.0); Monocytes # (A) 0.4 k/uL (0-1.0); Monocytes % (A) 5 %; Neutrophils # (A) 4.5 k/uL (1.3-7.7); Neutrophils % (A) 66 %; Platelet Count 208 k/uL (150-450); RBC 5.31 m/uL (4.30-5.90); RDW 13.8 % (11.5-15.5); WBC 6.9 k/uL (3.8-10.6)
[2021-01-22 05:41] LABS: African American GFR (CKD) >90 (>60 ml/min/1.73 sqM); Anion Gap 6 mmol/L; Blood Urea Nitrogen 15 mg/dL (9-20); Calcium 8.9 mg/dL (8.4-10.2); Carbon Dioxide 25 mmol/L (22-30); Chloride 106 mmol/L (98-107); Glucose 95 mg/dL (74-99); Non-African American GFR(CKD) >90 (>60 ml/min/1.73 sqM); Potassium 3.8 mmol/L (3.5-5.1); Sodium 137 mmol/L (137-145)
[2021-01-22] MEDS ORDERED: Potassium Replacement Protocol 1 EACH MISC MISCELLANE PRN (06:05)
[2021-01-22] MEDS ORDERED: POTASSIUM CHLORIDE ER 20 MEQ TAB.ER PO SCH (07:00)
[2021-01-22] MEDS: MULTIVITAMINS, THERA 1 EACH TAB PO SCH (08:58)
[2021-01-22] MEDS: ENOXAPARIN 40 MG/0.4 ML SYRINGE SQ SCH (08:58)
[2021-01-22] MEDS: amLODIPine 5 MG TAB PO SCH ×2 (08:58→20:11)
[2021-01-22] MEDS: lisinopriL 10 MG TAB PO SCH ×2 (08:58→20:11)
[2021-01-22] MEDS ORDERED: SODIUM CHLORIDE 0.9% 1,000 ML IV SCH ×2 (12:15)
--- NOTE | 2021-01-22 13:12 | P.CRDCN ---
History of Present Illness History of present illness: This is Dr. Mendez dictating a consult on this patient, electrophysiology consult requested by Dr. 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 He had several tick bites by the end of the trip He noticed a small knot on his upper back. This was mildly tender Later his noted that there was a tick attached The area became mildly swollen and indurated Patient denied any fever or chills He denied any dizziness or lightheadedness At the primary care physician's office he was noted to be bradycardic The twelve-lead EKG showed A-V dissociation, third-degree AV block Currently he is on IV antibiotics Lyme serology is awaited ROS: No fever chills or rigors, no cough, phlegm or expectoration, no nausea, vomiting or diarrhea, no hematuria, dysuria, no musculoskeletal complaints, no strokes or seizures, no skin lesions. EXAMINATION: On examination his pulse rate is in the 30s and on low-dose isoproterenol it is in the 40s He is lying comfortably in bed no chest discomfort Normal heart sounds but bradycardic Lungs are clear Abdomen is soft REVIEW OF LABS, ECG & MEDICAL DATA Preserved LV systolic function moderately dilated left atrium normal RV size on 2-D echo Twelve-lead EKG shows A-V dissociation with third degree heart block, narrow QRS Past Medical History Past Medical History: Hypertension Additional Past Medical History / Comment(s): basal cell Ca History of Any Multi-Drug Resistant Organisms: None Reported Additional Past Surgical History / Comment(s): VASECTOMY, REPAIR LIGAMENTS LEFT ELBOW. retina repaired Mohs surg.lt check Past Anesthesia/Blood Transfusion Reactions: No Reported Reaction Past Psychological History: No Psychological Hx Reported Smoking Status: Current every day smoker Past Alcohol Use History: None Reported Past Drug Use History: None Reported - Past Family History Mother Family Medical History: No Reported History Medications and Allergies Home Medications Medication Instructions Recorded Confirmed Type Aspirin EC [Ecotrin] 81 mg PO HS 03/02/15 01/19/21 History Multivitamins, Thera [Theragran] 1 tab PO DAILY 03/02/15 01/19/21 History [place]-3 Fatty Acids/Fish Oil [Fish 1 cap PO DAILY 03/02/15 01/19/21 History Oil 1,000 mg Softgel] amLODIPine BESYLATE/BENAZEPRIL 1 cap PO BID 03/02/15 01/19/21 History [Amlodipine-Benazepril 5-10 mg] Cetirizine HCl [Zyrtec] 10 mg PO HS 01/19/21 01/19/21 History Potassium Gluconate 99 mg PO DAILY 01/19/21 01/19/21 History Allergies Allergy/AdvReac Type Severity Reaction Status Date / Time No Known Allergies Allergy Verified 01/19/21 11:21 Physical Exam Vitals: Vital Signs Temp Pulse Resp BP Pulse Ox 01/22/21 11:00 41 L 16 148/75 94 L 01/22/21 10:00 44 L 15 141/80 95 01/22/21 09:00 39 L 14 142/69 93 L 01/22/21 08:00 98.2 F 38 L 20 146/62 92 L 01/22/21 07:00 39 L 18 125/66 95 01/22/21 06:00 36 L 14 131/57 94 L 01/22/21 05:00 36 L 10 L 154/63 92 L 01/22/21 04:00 97.7 F 36 L 13 132/59 97 01/22/21 03:00 37 L 135/57 95 01/22/21 02:00 37 L 17 146/62 96 01/22/21 01:00 36 L 11 L 130/55 93 L 01/22/21 00:06 35 L 13 89 L 01/22/21 00:00 97.2 F L 36 L 15 147/73 92 L 01/21/21 23:00 39 L 19 147/65 95 01/21/21 22:00 40 L 140/67 96 01/21/21 21:00 41 L 12 141/66 94 L 01/21/21 20:00 97.8 F 48 L 19 145/62 95 01/21/21 19:00 38 L 17 145/56 93 L 01/21/21 18:00 41 L 27 H 146/77 01/21/21 17:00 40 L 10 L 136/66 96 01/21/21 16:00 97.9 F 38 L 10 L 152/83 95 01/21/21 15:00 14 135/75 96 01/21/21 14:00 42 L 19 152/65 94 L Intake and Output 01/21/21 01/22/21 01/22/21 22:59 06:59 14:59 Intake Total 623.995 160 100 Output Total 575 350 250 Balance 48.995 -190 -150 Intake: IV 160 160 100 Sodium Chloride 0.9% 1, 160 160 100 000 ml @ 20 mls/hr IV . Q24H [facility] Rx#:[id number] Intake, IV Titration 241.995 Amount Isoproterenol 1,000 mcg 241.995 In Dextrose 5% in Water 250 ml @ Per Protocol IV .Q0M [facility] Rx#:[id number] Oral 222 Output: Urine 575 350 250 Other: Voiding Method Urinal Urinal # Voids 1 0 1 # Bowel Movements 1 Weight 111.7 kg Results 01/22/21 04:32 01/22/21 04:32 CBC 01/22/21 Range/Units 04:32 WBC 6.9 (3.8-10.6) k/uL RBC 5.31 (4.30-5.90) m/uL Hgb 15.5 (13.0-17.5) gm/dL Hct 47.0 (39.0-53.0) % Plt Count 208 (150-450) k/uL Comprehensive Metabolic Panel 01/22/21 Range/Units 04:32 Sodium 137 (137-145) mmol/L Potassium 3.8 (3.5-5.1) mmol/L Chloride 106 (98-107) mmol/L Carbon Dioxide 25 (22-30) mmol/L BUN 15 (9-20) mg/dL Creatinine 0.68 (0.66-1.25) mg/dL Glucose 95 (74-99) mg/dL Calcium 8.9 (8.4-10.2) mg/dL Current Medications Generic Name Dose Route Start Last Admin Trade Name Freq PRN Reason Stop Dose Admin Amlodipine Besylate 5 mg 01/19/21 21:00 01/22/21 08:58 Amlodipine 5 Mg Tab PO 5 mg BID [facility] Administration Aspirin 81 mg 01/19/21 21:00 01/21/21 20:37 Aspirin 81 Mg PO 81 mg HS [facility] Administration Enoxaparin Sodium 40 mg 01/22/21 09:00 01/22/21 08:58 Enoxaparin 40 Mg/0.4 Ml Syringe SQ 40 mg DAILY [facility] Administration Hydralazine HCl 10 mg 01/19/21 22:16 Hydralazine Hcl 20 Mg/Ml 1 Ml Vial IVP Q4HR PRN Blood Pressure - High Ceftriaxone Sodium 2 gm/ 50 mls @ 100 mls/hr 01/20/21 09:00 01/22/21 08:57 Sodium Chloride IVPB 100 mls/hr DAILY [facility] Administration Isoproterenol HCl 1,000 mcg/ 255 mls @ 0 mls/hr 01/19/21 21:00 01/21/21 20:37 Dextrose/Water IV 1 mcg/min .Q0M [facility] 15.3 mls/hr Administration Protocol Per Protocol Sodium Chloride 1,000 mls @ 50 mls/hr 01/22/21 12:15 Saline 0.9% IV .Q20H [facility] Sodium Chloride 1,000 mls @ 50 mls/hr 01/22/21 12:15 Saline 0.9% IV .Q20H [facility] Clindamycin Phosphate 900 mg/ 56 mls @ 50 mls/hr 01/23/21 07:00 Dextrose/Water IVPB 01/23/21 23:00 ONCE PRN Pre-Op Lisinopril 10 mg 01/19/21 21:00 01/22/21 08:58 Lisinopril 10 Mg Tab PO 10 mg BID [facility] Administration Loratadine 10 mg 01/19/21 21:00 01/21/21 20:37 Loratadine 10 Mg Tab PO 10 mg HS [facility] Administration Miscellaneous Information 1 each 01/20/21 06:45 Potassium Replacement Protocol 1 Each Misc MISCELLANE DAILY PRN Per Protocol Protocol Miscellaneous Information 1 each 01/21/21 05:41 Potassium Replacement Protocol 1 Each Misc MISCELLANE DAILY PRN Per Protocol Protocol Miscellaneous Information 1 each 01/22/21 06:05 Potassium Replacement Protocol 1 Each Misc MISCELLANE DAILY PRN Per Protocol Protocol Multivitamins 1 each 01/20/21 09:00 01/22/21 08:58 Multivitamins, Thera 1 Each Tab PO 1 each DAILY [facility] Administration Naloxone HCl 0.2 mg 01/19/21 11:38 Naloxone 0.4 Mg/Ml 1 Ml Vial IV Q2M PRN Opioid Reversal Intake and Output 01/21/21 01/22/21 01/22/21 22:59 06:59 14:59 Intake Total 623.995 160 100 Output Total 575 350 250 Balance 48.995 -190 -150 Intake: IV 160 160 100 Sodium Chloride 0.9% 1, 160 160 100 000 ml @ 20 mls/hr IV . Q24H [facility] Rx#:[id number] Intake, IV Titration 241.995 Amount Isoproterenol 1,000 mcg 241.995 In Dextrose 5% in Water 250 ml @ Per Protocol IV .Q0M [facility] Rx#:[id number] Oral 222 Output: Urine 575 350 250 Other: Voiding Method Urinal Urinal # Voids 1 0 1 # Bowel Movements 1 Weight 111.7 kg 01/22/21 04:32 01/22/21 04:32
[2021-01-22] MEDS ORDERED: IV FLUID CONTINUATION 300 ML IV ONE (13:31)
[2021-01-22] MEDS ORDERED: IOPAMIDOL-370 50ML BTL INJ ONE (13:35)
[2021-01-22] MEDS ORDERED: MIDAZOLAM 2 MG/2 ML VIAL IV ONE (13:35)
[2021-01-22] MEDS ORDERED: LIDOCAINE 1% INJ 10MG/ML (20 ML MDV) ONE (13:37)
[2021-01-22] MEDS ORDERED: LIDOCAINE 1% INJ 10MG/ML (20 ML MDV) SQ ONE (13:42)
[2021-01-22] MEDS ORDERED: CLINDAMYCIN 900 MG in DEXTROSE 5% IN WATER 50 ML IVPB PRN ×2 (14:00)
--- NOTE | 2021-01-22 14:41 | P.EPPROC ---
- EP Procedure Note Electrophysiology Procedure Note: Procedure Externalized pacemaker Indication for procedure Lyme's disease Third-degree heart block, on IV antibiotics Details Patient was brought to the EP lab in a fasting state. Written informed consent was obtained prior to the procedure. Left upper extremity venogram was performed. 50 mL IV dye injected in the right arm The left subclavian and x-ray veins are patent Right pectoral area was then prepped and draped as per protocol Axillary vein access obtained Sheath placed Lead placed in the RA and then positioned in the RV apex and screwed in R waves 15 mV Pacing threshold 0.5 V at 0.5 ms Pacing impedance 890 ohms Device programmed at previous 50 beats a minute Conscious sedation Patient underwent EP procedure under conscious sedation/moderate sedation, monitoring of the level of consciousness and physiologic parameters including but not limited to vital signs and oxygenation. Patient tolerated the procedure well without any acute complications. Start time: 1315 Stop time: 1436
[2021-01-22] MEDS ORDERED: ACETAMINOPHEN TAB 325 MG TAB PO PRN (14:43)
--- NOTE | 2021-01-22 15:48 | XR ---
EXAMINATION TYPE: XR chest 1V portable DATE OF EXAM: 01/22/2021 COMPARISON: 01/19/2021 HISTORY: Lead placement TECHNIQUE: FINDINGS: Heart and mediastinum appear normal. Lungs are clear. There is right axillary pacemaker wit h the lead tip over the right ventricle. There is no pleural effusion. IMPRESSION: No active cardiopulmonary disease. No change.
--- NOTE | 2021-01-22 17:39 | P.PN ---
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 He denies prior history of coronary artery disease and does not follow in the office with a shaper setter. We have been asked to see in consultation for heart block. He presented to to his PCPs office this morning after finding a tick on his neck. He was found to have a low heart rate and an EKG obtained revealed A- V dissociation. He was sent to the emergency department with his . He is seen and examined sitting up on the stretcher in no acute distress. He has no symptoms of chest pain, shortness of breath, dizziness or palpitations. He states he may have been more fatigued last night than usual however this is not even thought to be significant per his . EKG obtained here again reveals complete A-V dissociation with heart rate of 34. Chest x-ray reveals cardiomegaly and atherosclerotic aorta. Laboratory data reviewed, CBC unremarkable, sodium 140, potassium 4.2, creatinine 0.76, magnesium 1.9, troponin negative 1 and TSH 1.56. He was given one dose of Rocephin on admission. Infectious disease is consulted to see the patient as well. Continue cardiac medications include amlodipine/benazepril 5/10 mg twice a day and aspirin 81 mg daily. Objective - Vital Signs Vital signs: Vital Signs Temp 97.7 F 01/22/21 04:00 Pulse 39 L 01/22/21 07:00 Resp 18 01/22/21 07:00 BP 125/66 01/22/21 07:00 Pulse Ox 95 01/22/21 07:00 Intake & Output 01/21/21 01/22/21 01/22/21 18:59 06:59 18:59 Intake Total 462 481.995 20 Output Total 525 700 Balance -63 -218.005 20 Weight 111.7 kg Intake: IV 240 240 20 Sodium Chloride 0.9% 1, 240 240 20 000 ml @ 20 mls/hr IV . Q24H [facility] Rx#:[id number] Intake, IV Titration 241.995 Amount Isoproterenol 1,000 mcg 241.995 In Dextrose 5% in Water 250 ml @ Per Protocol IV .Q0M [facility] Rx#:[id number] Oral 222 Output: Urine 525 700 Other: Voiding Method Urinal Urinal # Voids 0 0 0 - Exam CONSTITUTIONAL: No apparent distress. HEENT: Head is normocephalic. Pupils are equal, round. Sclerae anicteric. Mucous membranes of the mouth are moist. No JVD. No carotid bruit. CHEST EXAMINATION: Lungs are clear to auscultation. No chest wall tenderness is noted on palpation or with deep breathing. HEART EXAMINATION: Regular, slow rate and rhythm. S1, S2 heard. Soft systolic ejection murmur at the base, no gallops or rub. ABDOMEN: Soft, nontender. Positive bowel sounds. EXTREMITIES: 2+ peripheral pulses, no lower extremity edema and no calf tenderness. NEUROLOGIC EXAMINATION: Patient is awake, alert and oriented x3. - Labs CBC & Chem 7: 01/22/21 04:32 01/22/21 04:32 Assessment and Plan Assessment: 1. Third degree heart block with narrow QRS 2. Likely Lyme's disease 3. History of hypertension 4. History of COVID-19 viral infection 5. Obesity DVT prophylaxis; SCDs CODE STATUS; full code Plan: The patient will be on IV and oral antibiotics for treatment of Lyme's disease Cardiology on board and not recommending implantation of an externalized pacemaker until his antibiotic course is complete; continue isoproterenol drip Reevaluation on a weekly basis to see if there is improvement in his AV node function Continue with current antihypertensive therapy and current dose of statin
--- NOTE | 2021-01-22 17:51 | PN ---
PROGRESS NOTE DATE OF SERVICE: 01/22/2021 REASON FOR FOLLOWUP: Possible Lyme carditis. INTERVAL HISTORY: Patient is currently afebrile. Patient is breathing comfortably. The patient is status post temporary pacemaker placement on admission already had the procedure. Denies any chest pain, shortness of breath or cough. No nausea, no vomiting. No abdominal pain or diarrhea. PHYSICAL EXAMINATION: VITAL SIGNS: His blood pressure is 123/76, pulse of 49, temperature 98. He is 95% on room air. GENERAL DESCRIPTION: Patient is a middle-aged male lying in bed in no distress. LUNGS: Unlabored breathing, clear to auscultation anteriorly. HEART: S1-S2, regular rate and rhythm. ABDOMEN: Soft, no tenderness. EXTREMITIES: No edema of the feet. LABS: Hemoglobin is 15.1, white count 6.9, BUN of 15, creatinine 0.68. DIAGNOSTIC IMPRESSION AND PLAN: Patient with admission to the hospital with a tick bite to the upper back, also with significant bradyarrhythmia with concern of possible Lyme carditis. Lyme serology is pending. Patient is covered with Rocephin 2 grams daily to continue and monitor clinical course closely. MMODL / IJN: [id number] /
[2021-01-22] MEDS: ASPIRIN 81 MG PO SCH (20:11)
[2021-01-22] MEDS: LORATADINE 10 MG TAB PO SCH (20:11)
[2021-01-23 03:41] LABS: HCT 46.1 % (39.0-53.0); HGB 16.2 gm/dL (13.0-17.5); MCH 31.2 pg (25.0-35.0); Mean Platelet Volume 7.4; Platelet Count 217 k/uL (150-450); RBC 5.18 m/uL (4.30-5.90); RDW 13.4 % (11.5-15.5); WBC 6.5 k/uL (3.8-10.6)
[2021-01-23 03:53] LABS: African American GFR (CKD) >90 (>60 ml/min/1.73 sqM); Anion Gap 8 mmol/L; Blood Urea Nitrogen 21 mg/dL (9-20); Calcium 9.3 mg/dL (8.4-10.2); Carbon Dioxide 28 mmol/L (22-30); Chloride 102 mmol/L (98-107); Glucose 87 mg/dL (74-99); Non-African American GFR(CKD) 82 (>60 ml/min/1.73 sqM); Potassium 4.6 mmol/L (3.5-5.1); Sodium 138 mmol/L (137-145)
[2021-01-23] MEDS: amLODIPine 5 MG TAB PO SCH ×2 (08:08→20:00)
[2021-01-23] MEDS: lisinopriL 10 MG TAB PO SCH ×2 (08:08→20:00)
[2021-01-23] MEDS: ENOXAPARIN 40 MG/0.4 ML SYRINGE SQ SCH (08:08)
[2021-01-23] MEDS: MULTIVITAMINS, THERA 1 EACH TAB PO SCH (08:08)
--- NOTE | 2021-01-23 13:17 | P.PN ---
Subjective Progress Note Date: 01/23/21 Objective - Vital Signs Vital signs: Vital Signs Temp 97.9 F 01/23/21 12:00 Pulse 50 L 01/23/21 13:00 Resp 18 01/23/21 13:00 BP 123/75 01/23/21 13:00 Pulse Ox 93 L 01/23/21 13:00 Intake & Output 01/22/21 01/23/21 01/23/21 18:59 06:59 18:59 Intake Total 346 50 Output Total 825 0 Balance -479 50 Weight 110.7 kg Intake: IV 346 50 Sodium Chloride 0.9% 1, 140 000 ml @ 20 mls/hr IV . Q24H [facility] Rx#:[id number] cefTRIAXone 2 gm In 50 Sodium Chloride 0.9% 50 ml @ 100 mls/hr IVPB DAILY [facility] Rx#:[id number] Output: Urine 825 0 Other: Voiding Method Urinal # Voids 1 0 1 # Bowel Movements 1 1 - Labs CBC & Chem 7: 01/23/21 03:19 01/23/21 03:19 Labs: Abnormal Lab Results - Last 24 Hours (Table) 01/23/21 Range/Units 03:19 BUN 21 H (9-20) mg/dL
--- NOTE | 2021-01-23 18:00 | P.PN ---
Subjective Progress Note Date: 01/23/21 Principal diagnosis: Third degree heart block with narrow QRS Likely Lyme's disease 65-year-old male past medical history significant for hypertension. He denies prior history of coronary artery disease and does not follow in the office with a formstone fitter. We have been asked to see in consultation for heart block. He presented to to his PCPs office this morning after finding a tick on his neck. He was found to have a low heart rate and an EKG obtained revealed A- V dissociation. He was sent to the emergency department with his . He is seen and examined sitting up on the stretcher in no acute distress. He has no symptoms of chest pain, shortness of breath, dizziness or palpitations. He states he may have been more fatigued last night than usual however this is not even thought to be significant per his . EKG obtained here again reveals complete A-V dissociation with heart rate of 34. Chest x-ray reveals cardiomegaly and atherosclerotic aorta. Laboratory data reviewed, CBC unremarkable, sodium 140, potassium 4.2, creatinine 0.76, magnesium 1.9, troponin negative 1 and TSH 1.56. He was given one dose of Rocephin on admission. Infectious disease is consulted to see the patient as well. Continue cardiac medications include amlodipine/benazepril 5/10 mg twice a day and aspirin 81 mg daily. 01/23/2021 Patient is seen and evaluated in room at bedside in ICU; patient is currently afebrile; denies any specific complaints; patient is admitted with possible Lyme's carditis with AV block; patient is status post externalized pacemaker for third-degree AV block, with device programmed at 50 bpm; follow-up chest x-ray shows right axillary pacemaker with lead tip over the right ventricle Lyme's serology is currently pending; patient is being treated with Rocephin 2 g IV daily Objective - Vital Signs Vital signs: Vital Signs Temp 97.9 F 01/23/21 12:00 Pulse 50 L 01/23/21 13:00 Resp 18 01/23/21 13:00 BP 123/75 01/23/21 13:00 Pulse Ox 93 L 01/23/21 13:00 Intake & Output 01/22/21 01/23/21 01/23/21 18:59 06:59 18:59 Intake Total 346 50 Output Total 825 0 Balance -479 50 Weight 110.7 kg Intake: IV 346 50 Sodium Chloride 0.9% 1, 140 000 ml @ 20 mls/hr IV . Q24H [facility] Rx#:[id number] cefTRIAXone 2 gm In 50 Sodium Chloride 0.9% 50 ml @ 100 mls/hr IVPB DAILY [facility] Rx#:[id number] Output: Urine 825 0 Other: Voiding Method Urinal # Voids 1 0 1 # Bowel Movements 1 1 - Exam CONSTITUTIONAL: No apparent distress. HEENT: Head is normocephalic. Pupils are equal, round. Sclerae anicteric. Mucous membranes of the mouth are moist. No JVD. No carotid bruit. CHEST EXAMINATION: Lungs are clear to auscultation. No chest wall tenderness is noted on palpation or with deep breathing. HEART EXAMINATION: Regular, slow rate and rhythm. S1, S2 heard. Soft systolic ejection murmur at the base, no gallops or rub. ABDOMEN: Soft, nontender. Positive bowel sounds. EXTREMITIES: 2+ peripheral pulses, no lower extremity edema and no calf tenderness. NEUROLOGIC EXAMINATION: Patient is awake, alert and oriented x3. - Labs CBC & Chem 7: 01/23/21 03:19 01/23/21 03:19 Labs: Abnormal Lab Results - Last 24 Hours (Table) 01/23/21 Range/Units 03:19 BUN 21 H (9-20) mg/dL Assessment and Plan Assessment: 1. Third degree heart block with narrow QRS 2. Likely Lyme's disease 3. History of hypertension 4. History of COVID-19 viral infection 5. Obesity DVT prophylaxis; SCDs CODE STATUS; full code Plan: The patient will be on IV and oral antibiotics for treatment of Lyme's disease Cardiology on board and not recommending implantation of an externalized pacemaker until his antibiotic course is complete; continue isoproterenol drip Reevaluation on a weekly basis to see if there is improvement in his AV node function Continue with current antihypertensive therapy and current dose of statin
--- NOTE | 2021-01-23 19:20 | PN ---
PROGRESS NOTE DATE OF SERVICE: 01/23/2021 REASON FOR FOLLOWUP: Possible Lyme carditis. INTERVAL HISTORY: The patient is currently afebrile. The patient is breathing comfortably. The patient denies having any chest pain. No shortness of breath or cough. No nausea, vomiting, abdominal pain or diarrhea. PHYSICAL EXAMINATION: Blood pressure 114/81, pulse of 49, temperature is 97.8. He is 95% on room air. General description: The patient is a middle-aged male up in the chair in no distress. Respiratory system: Unlabored breathing, clear to auscultation anteriorly. Heart S1, S2. Regular rate and rhythm. ABDOMEN: Soft, no tenderness. LABS: Hemoglobin is 16.1, white count 6.5, BUN of 21, creatinine 0.98. DIAGNOSTIC IMPRESSION AND PLAN: Patient admitted to the hospital with significant bradyarrhythmia with tick attachment, concern for possible endocarditis. Still waiting for the Lyme serology, which if negative, antibiotic can be safely discontinued. For now, continue Rocephin. Family at the bedside. Questions answered. MMODL / IJN: [id number] /
[2021-01-23] MEDS: ASPIRIN 81 MG PO SCH (20:00)
[2021-01-23] MEDS: LORATADINE 10 MG TAB PO SCH (20:00)
[2021-01-24 00:21] VITALS: RESP 16
[2021-01-24 04:33] LABS: HCT 46.1 % (39.0-53.0); HGB 15.3 gm/dL (13.0-17.5); MCHC 33.3 g/dL (31.0-37.0); MCV 90.2 fL (80.0-100.0); Mean Platelet Volume 6.8; Platelet Count 207 k/uL (150-450); RBC 5.11 m/uL (4.30-5.90); RDW 14.1 % (11.5-15.5)
[2021-01-24 04:58] LABS: African American GFR (CKD) >90 (>60 ml/min/1.73 sqM); Anion Gap 7 mmol/L; Blood Urea Nitrogen 32 mg/dL (9-20); Calcium 9.3 mg/dL (8.4-10.2); Carbon Dioxide 28 mmol/L (22-30); Chloride 102 mmol/L (98-107); Glucose 86 mg/dL (74-99); Non-African American GFR(CKD) 85 (>60 ml/min/1.73 sqM); Potassium 4.3 mmol/L (3.5-5.1); Sodium 137 mmol/L (137-145)
[2021-01-24] MEDS: ENOXAPARIN 40 MG/0.4 ML SYRINGE SQ SCH (08:55)
[2021-01-24] MEDS: amLODIPine 5 MG TAB PO SCH (08:55)
[2021-01-24] MEDS: lisinopriL 10 MG TAB PO SCH (08:55)
[2021-01-24] MEDS: MULTIVITAMINS, THERA 1 EACH TAB PO SCH (08:55)
--- NOTE | 2021-01-24 11:35 | P.PN ---
Subjective 65-year-old male past medical history significant for hypertension. He denies prior history of coronary artery disease and does not follow in the office with a carpenter helper hardwood flooring. We have been asked to see in consultation for heart block. He presented to to his PCPs office this morning after finding a tick on his neck. He was found to have a low heart rate and an EKG obtained revealed A- V dissociation. He was sent to the emergency department with his . He is seen and examined sitting up on the stretcher in no acute distress. He has no symptoms of chest pain, shortness of breath, dizziness or palpitations. He states he may have been more fatigued last night than usual however this is not even thought to be significant per his . EKG obtained here again reveals complete A-V dissociation with heart rate of 34. Chest x-ray reveals cardiomegaly and atherosclerotic aorta. Laboratory data reviewed, CBC unremarkable, sodium 140, potassium 4.2, creatinine 0.76, magnesium 1.9, troponin negative 1 and TSH 1.56. He was given one dose of Rocephin on admission. Infectious disease is consulted to see the patient as well. Continue cardiac medications include amlodipine/benazepril 5/10 mg twice a day and aspirin 81 mg daily. 01/23/2021 Patient is seen and evaluated in room at bedside in ICU; patient is currently afebrile; denies any specific complaints; patient is admitted with possible Lyme 's carditis with AV block; patient is status post externalized pacemaker for third-degree AV block, with device programmed at 50 bpm; follow-up chest x-ray shows right axillary pacemaker with lead tip over the right ventricle Lyme's serology is currently pending; patient is being treated with Rocephin 2 g IV daily 01/24/2021 This is a pleasant 65 years old male well fine to take on the right upper back, patient to remove the tic away and went to see his PCP Dr. Marin and his BLOOD BANK LABORATORY TECHNOLOGIST Kyrie ordered routine EKG for him found him to be bradycardic and sent into the emergency room. Patient has picture of the tic which looks like dear take for Lyme disease, infectious disease team on the case. Lyme serology still pending, and depending on the results antibiotics is going to be continuing to stopped with ID team recommendation. Cardiology also following the case, patient currently is asymptomatic with heart rate 49-50 this morning. Station Chief recommended external pacemaker and keep monitoring for now to finish his antibiotic course Patient currently on aspirin 81 mg, ceftriaxone 2 g daily. Objective - Vital Signs Vital signs: Vital Signs Temp 97.7 F 01/24/21 08:00 Pulse 50 L 01/24/21 08:00 Resp 16 01/24/21 08:00 BP 107/71 01/24/21 08:00 Pulse Ox 95 01/24/21 08:00 Intake & Output 01/23/21 01/24/21 01/24/21 18:59 06:59 18:59 Intake Total 50 50 Output Total 0 Balance 50 50 Weight 111.4 kg Intake: IV 50 50 cefTRIAXone 2 gm In 50 50 Sodium Chloride 0.9% 50 ml @ 100 mls/hr IVPB DAILY [facility] Rx#:[id number] Output: Urine 0 Other: Voiding Method Toilet # Voids 1 3 1 # Bowel Movements 1 - Exam GENERAL: The patient is alert and oriented x3, not in any acute distress. Well developed, well nourished. HEENT: Pupils are round and equally reacting to light. EOMI. No scleral icterus. No conjunctival pallor. Normocephalic, atraumatic. No pharyngeal erythema. No thyromegaly. CARDIOVASCULAR: S1 and S2 present. No murmurs, rubs, or gallops. PULMONARY: Chest is clear to auscultation, no wheezing or crackles. ABDOMEN: Soft, nontender, nondistended, normoactive bowel sounds. No palpable organomegaly. MUSCULOSKELETAL: No joint swelling or deformity. EXTREMITIES: No cyanosis, clubbing, or pedal edema. NEUROLOGICAL: Gross neurological examination did not reveal any focal deficits. SKIN: No rashes. no petechiae. - Labs CBC & Chem 7: 01/24/21 03:08 01/24/21 03:08 Labs: Abnormal Lab Results - Last 24 Hours (Table) 01/24/21 Range/Units 03:08 BUN 32 H (9-20) mg/dL Assessment and Plan Assessment: 1. Third degree heart block with narrow QRS 2. Recent tick bite to the right upper shoulder from the back, Likely Lyme's disease 3. History of hypertension 4. History of COVID-19 viral infection 5. Obesity Plan: This is a pleasant 65 years old male who presents with bradycardia and possible lung disease secondary to take bites. Follow-up serology for Lyme disease, continue with antibiotics with ceftriaxone until then. A decision about antibiotics per infectious disease. Acute monitoring heart rate, cardiology team on the case recommended external pacemaker and keep monitoring for heart rate now Labs and medication were reviewed.. Continue same treatment. Continue with symptomatic treatment. Resume home medication. Monitor lytes and vitals. DVT and GI prophylaxis. Further recommendationsas per clinical course of the patient DVT prophylaxis: Subcutaneous Lovenox GI Prophylaxis: Pepcid
[2021-01-24 12:55] VITALS: BP 99/77; PULSE 49; TEMP 97.9
[2021-01-24] MEDS ORDERED: DOXYCYCLINE 100 MG CAP PO STA (15:46)
[2021-01-24] MEDS ORDERED: FAMOTIDINE 20 MG/2 ML VIAL IV SCH (21:00)
== END 2021-01-24 16:26 | disposition home or self-care (01) | DRG 261 ==
LOC: EC 10:22 → 3SCARD 11:39 → 2SICU 21:05 → 3SCARD 01-24 15:17
PROVIDERS: ADMIT Family Medicine; ATTEND Family Medicine
PROC: 02H63JZ Insertion of Pacemaker Lead into Right Atrium, Percutaneous Approach (ICD-10-PCS; principal; 2021-01-19)
PROC: 02HK3JZ Insertion of Pacemaker Lead into Right Ventricle, Percutaneous Approach (ICD-10-PCS; 2021-01-19)
PROC: 5A1223Z Performance of Cardiac Pacing, Continuous (ICD-10-PCS; 2021-01-19)
DX: I44.2 Atrioventricular block, complete (principal); B33.20 Viral carditis, unspecified; A69.29 Other conditions associated with Lyme disease; I70.0 Atherosclerosis of aorta; W57.XXXA Bitten or stung by nonvenomous insect and other nonvenomous arthropods, initial encounter; R00.1 Bradycardia, unspecified; I51.7 Cardiomegaly; I45.89 Other specified conduction disorders; Z20.822 Contact with and (suspected) exposure to COVID-19; E66.9 Obesity, unspecified; Z68.33 Body mass index [BMI] 33.0-33.9, adult; Z79.82 Long term (current) use of aspirin; Z85.828 Personal history of other malignant neoplasm of skin; E87.6 Hypokalemia; Z86.16 Personal history of COVID-19; F17.200 Nicotine dependence, unspecified, uncomplicated; I25.10 Atherosclerotic heart disease of native coronary artery without angina pectoris; I10 Essential (primary) hypertension
CPT/HCPCS: 33210; 36415; 71045; 80048; 80053; 83605; 83735; 84443; 84484; 85025; 85027; 85610; 85652; 85730; 86140; 86618; 87635; 93005; 93306; 99291

== ENCOUNTER 2021-02-07 05:43 | Day surgery (SDC) | payer BC ==
[2021-02-03 12:48] VITALS: BMI 33.7
[2021-02-07 06:26] VITALS: BP 145/73; PULSE 49; RESP 16; TEMP 98
[2021-02-07] MEDS ORDERED: LIDOCAINE 1% INJ 10MG/ML (20 ML MDV) ONE (07:37)
[2021-02-07] MEDS ORDERED: LIDOCAINE 1% INJ 10MG/ML (20 ML MDV) SQ ONE (07:47)
--- NOTE | 2021-02-07 08:25 | P.EPPROC ---
- EP Procedure Note Electrophysiology Procedure Note: Diagnosis Complete heart block On IV antibiotics for Lyme's disease Externalized pacemaker on the right side, right pectoral area Procedure Lead and device suturing Wound care and dressing change The left pectoral area and the dressing was prepped cleaned and then carefully removed The suture holding the generator was removed Under local anesthesia this was sutured at a different site The sutures holding down the lead over the sleeve were removed New sutures were applied under local anesthesia The area was cleaned and dressed under full sterile Precautions New dressing was applied Plan Oral antibiotics Proceed with a biventricular pacemaker implantation in the next 2 weeks, elect ively There has been no improvement in his AV node function
== END 2021-02-07 08:36 | disposition home or self-care (01) ==
LOC: CATHEP 05:43
PROVIDERS: ATTEND Internal Medicine Clinical Cardiac Electrophysiology
DX: Z48.01 Encounter for change or removal of surgical wound dressing (principal); I44.2 Atrioventricular block, complete; A69.20 Lyme disease, unspecified; Z95.0 Presence of cardiac pacemaker; Z20.822 Contact with and (suspected) exposure to COVID-19; Z45.018 Encounter for adjustment and management of other part of cardiac pacemaker; Z79.82 Long term (current) use of aspirin; Z79.899 Other long term (current) drug therapy
CPT/HCPCS: 87635; J2001; 12020

== ENCOUNTER → 2021-02-11 | Outpatient (CLI) | payer BC ==
[2021-02-11 16:18] LABS: HCT 43.4 % (39.0-53.0); HGB 15.1 gm/dL (13.0-17.5); MCH 31.4 pg (25.0-35.0); MCHC 34.8 g/dL (31.0-37.0); MCV 90.1 fL (80.0-100.0); Mean Platelet Volume 7.3; Platelet Count 211 k/uL (150-450); RBC 4.82 m/uL (4.30-5.90); RDW 13.1 % (11.5-15.5); WBC 6.3 k/uL (3.8-10.6)
[2021-02-11 16:33] LABS: African American GFR (CKD) >90 (>60 ml/min/1.73 sqM); Anion Gap 10 mmol/L; Blood Urea Nitrogen 18 mg/dL (9-20); Carbon Dioxide 29 mmol/L (22-30); Chloride 100 mmol/L (98-107); Non-African American GFR(CKD) 88 (>60 ml/min/1.73 sqM); Sodium 139 mmol/L (137-145)
== END | disposition home or self-care (01) ==
LOC: LABPAT 14:13
PROVIDERS: ATTEND Internal Medicine Clinical Cardiac Electrophysiology
DX: Z01.812 Encounter for preprocedural laboratory examination (principal); I44.2 Atrioventricular block, complete
CPT/HCPCS: 36415; 80051; 82565; 84520; 85027

== ENCOUNTER 2021-02-24 09:19 | Day surgery (SDC) | payer BC ==
[2021-02-22 11:34] VITALS: BMI 34.0
[~2021-02-24 09:19] MED LIST: LIDOCAINE 1% (10MG/ML) FOR IV START INTRADERMA PRN; ceFAZolin 1 GM in SODIUM CHLORIDE 0.9% 250 ML IRRIGATION PRN
[2021-02-24] MEDS: SODIUM CHLORIDE 0.9% 1,000 ML IV SCH ×2 (09:47→16:26)
[2021-02-24] MEDS ORDERED: PROPOFOL 10 MG/ML 20 ML VIAL IV ONE (10:25)
[2021-02-24] MEDS ORDERED: MIDAZOLAM 2 MG/2 ML VIAL ONE (10:25)
[2021-02-24] MEDS ORDERED: fentaNYL (PF) 50 MCG/ML 2 ML AMP ONE (10:25)
[2021-02-24] MEDS ORDERED: VANCOMYCIN 1,500 MG in SODIUM CHLORIDE 0.9% 250 ML IVPB PRN (10:30)
[2021-02-24] MEDS ORDERED: IOPAMIDOL-370 50ML BTL INJ ONE ×2 (10:42→12:15)
[2021-02-24] MEDS ORDERED: LIDOCAINE 1% INJ 10MG/ML (20 ML MDV) ONE ×2 (10:46→11:26)
[2021-02-24] MEDS ORDERED: LIDOCAINE 1% INJ 10MG/ML (20 ML MDV) SQ ONE (11:12)
--- NOTE | 2021-02-24 13:20 | P.EPPROC ---
- EP Procedure Note Electrophysiology Procedure Note: Procedure Successful implantation of a biventricular pacemaker Right atrial lead, Medtronic in the right atrial appendage, screwed in RV screw-in lead, Medtronic screwed in the RV apex LV lead, screw-in, Medtronic in the anterior lateral vein Medtronic diverticular pacemaker Diaphragmatic stimulation noted in the proximal poles of the LV only Plan IV antibiotics Device interrogation tomorrow along with chest x-ray
--- NOTE | 2021-02-24 13:22 | P.PRLE ---
RE: Cristiano España Dear Catalino Emeryneth underwent implantation of a biventricular pacemaker for complete heart block The externalized entry pacemaker was extracted He will receive IV antibiotics overnight and will be discharged home tomorrow He will continue to follow-up with you and Dr. Laird We will see him in the device clinic within a week Thank you for entrusting me with the care of the patient Warm regards Sincerely Nadir Mendez
[2021-02-24] MEDS ORDERED: ACETAMINOPHEN IV (For NPO) 1,000 MG in EMPTY BAG 1 BAG IVPB ONE (14:00)
[2021-02-24] MEDS: LACTATED RINGERS 1,000 ML IV SCH ×2 (14:44→17:19)
--- NOTE | 2021-02-24 14:46 | P.EPPROC ---
- EP Procedure Note Electrophysiology Procedure Note: Left upper extremity venogram 10 mL every dye injected in the left arm Patent left axillary subclavian and innominate venous system Plan Proceed with left-sided bi-ventricular pacemaker implantation
--- NOTE | 2021-02-24 15:30 | XR ---
EXAMINATION TYPE: XR chest 1V portable DATE OF EXAM: 02/24/2021 COMPARISON: 01/22/2021 HISTORY: Lead placement check TECHNIQUE: Single frontal view of the chest is obtained. FINDINGS: Left chest wall generator device with right atrial, right ventricular, and coronary sinus leads are seen. The previously seen right generator device has been removed. Heart size is enlarged, stable. No pleural effusion, focal consolidation or pneumothorax. IMPRESSION: 1. New left chest wall generator device with 3 leads.
--- NOTE | 2021-02-24 15:34 | CE ---
CARDIAC ELECTROPHYSIOLOGY REPORT 65-year-old male patient with complete heart block who has an externalized pacemaker implanted. He remains in complete heart block. Lines titers were negative. LV function normal. RV is normal. He is brought in for a biventricular pacemaker implantation since his anticipated RV pacing percentage is 100%. Patient was brought to the EP lab in a fasting state. Written informed consent was obtained prior to the procedure. IV antibiotics including IV vancomycin was administered. The left pectoral area was prepped and draped as per protocol. 1% lidocaine was used for local anesthesia. A 4 cm incision was made parallel to the deltopectoral groove, about 1.5 cm medial to it. The incision was carried down to the level of the pectoralis muscle. A subfascial pocket was made. Hemostasis was assured. The left axillary vein was accessed at 3 separate points under fluoroscopy and via appropriately-sized introducer sheaths, 2 leads were positioned in the right heart. The atrial lead was a Medtronic model #5076, 52 cm in length and serial number [id number]. This was screwed in the right atrial appendage. P waves were 1.3 mV. Pacing impedance 418 ohms, pacing threshold 0.7 V at 0.5 milliseconds. 10 V test negative. The RV lead was 58 cm, model #4076, serial number [id number]. This was screwed in the RV apex. Pacing impedance 570 ohms, pacing threshold 0.5 V at 0.5 milliseconds, 10 V test negative. The LV lead was positioned after coronary sinus venography. He had anterolateral vein, a large lateral vein and a middle cardiac vein. An anterolateral vein was selected and Medtronic model #4798, 88 cm length and serial #[id number] was screwed in the anterolateral cardiac vein. The thresholds were best in electrodes 2 and 3. The pacing threshold was 1 V at 0.5 milliseconds. The pacing impedance 550 ohms. R-waves 3 mV. In the proximal LV poles of 3 and 4, there was diaphragmatic stimulation at 10 V, but not at 5 V. There was no diaphragmatic stimulation in poles 1m 2 in 3 in any combination. The leads were secured to the underlying pectoralis fascia using 2 nonabsorbable sutures. The sheaths were removed. The generator was implanted. This was a MedBlueCava model number W4PR02, serial number [id number]. The leads and generator were then placed in subfascial pocket and the wound was closed in 3 layers and dressed per protocol. Following that, the externalized pacemaker lead was unscrewed that was disconnected from the generator. The lead was unscrewed and with counter-clockwise rotation and gentle traction, the lead was extracted. Hemostasis was assured. Vitals remained stable. The patient tolerated the procedure well without any acute complications. RESULT: Successful implantation of a biventricular pacemaker for complete heart block with normal LV and RV function and negative workup for Lyme's disease. MMODL / IJN: [id number] /
[2021-02-24 16:39] VITALS: PULSE 60
[2021-02-24] MEDS: ACETAMINOPHEN TAB 325 MG TAB PO PRN (21:54)
[2021-02-25] MEDS: SODIUM CHLORIDE 0.9% 1,000 ML IV SCH ×2 (03:05)
[2021-02-25] MEDS: ACETAMINOPHEN TAB 325 MG TAB PO PRN ×2 (04:57→11:14)
[2021-02-25 08:10] VITALS: BP 122/77; RESP 16; TEMP 97.7
--- NOTE | 2021-02-25 09:41 | DS ---
DISCHARGE SUMMARY Mr. España is a 65-year-old male patient who underwent a biventricular pacemaker implantation for persistent complete heart block. His Lyme disease workup was negative. LV function was normal. RV function is normal. His externalized right-sided pacemaker was extracted and a biventricular pacemaker was then implanted in the left side. The LV lead was screwed in the anterolateral vein (Medtronic). This morning he is doing well. He has no hematoma on the left side, no soakage. The right side is also healing well. The lungs are clear to auscultation. Heart sounds are normal. Blood pressure is stable. Chest x-ray shows stable lead position. His antibiotics have completed. Today, after device interrogation, he can go home and follow up with Dr. Gamez in the device clinic. MMODL / IJN: [id number] /
[2021-02-25] MEDS ORDERED: NON FORMULARY DRUG (Amlodipine Besylate/Benazepril [Amlodipine Besylate/Benazepril 5-10 Mg PO SCH (09:45)
[2021-02-25] MEDS ORDERED: amLODIPine 5 MG TAB PO SCH (10:00)
[2021-02-25] MEDS ORDERED: lisinopriL 10 MG TAB PO SCH (10:00)
[2021-02-25] MEDS ORDERED: ASPIRIN 81 MG PO SCH (21:00)
== END 2021-02-25 13:53 | disposition home or self-care (01) ==
LOC: CATHEP 09:19 → 6NMEDSUR 13:34 → CATHEP 02-25 13:53
PROVIDERS: ATTEND Internal Medicine Clinical Cardiac Electrophysiology
DX: I44.2 Atrioventricular block, complete (principal); I10 Essential (primary) hypertension; Z82.49 Family history of ischemic heart disease and other diseases of the circulatory system; Z20.822 Contact with and (suspected) exposure to COVID-19; F17.200 Nicotine dependence, unspecified, uncomplicated; Z79.82 Long term (current) use of aspirin; Z79.899 Other long term (current) drug therapy
CPT/HCPCS: 33225; 33208; 87635; 71045; C1769 ×4; C1892 ×2; C1730; C1898 ×2; C2621; J2250; J3370; J0690 ×2; J2001; J3010; J0131; J2704; Q9967

== ENCOUNTER → 2021-03-02 | Outpatient (CLI) | payer BC | END | disposition home or self-care (01) ==

== ENCOUNTER → 2021-06-27 | Outpatient (CLI) | payer BC ==
[2021-06-27 11:07] LABS: Basophils # (A) 0.05 X 10*3/uL (0.00-0.10); Basophils % (A) 0.9 %; Eosinophils % (A) 3.7 %; HCT 41.4 % (39.6-50.0); HGB 13.8 g/dL (13.0-17.0); Lymphocytes # (A) 1.41 X 10*3/uL (0.90-5.00); Lymphocytes % (A) 25.8 %; MCH 30.7 pg (27.0-32.0); MCHC 33.3 g/dL (32.0-37.0); Mean Platelet Volume 9.6 fL (9.5-12.2); Monocytes % (A) 9.1 %; Neutrophils % (A) 60.3 %; Platelet Count 212 X 10*3/uL (140-440); RDW 12.3 % (11.5-14.5); WBC 5.47 X 10*3/uL (4.50-10.00)
[2021-06-27 11:23] LABS: African American GFR (CKD) 104.2 (60.0-200.0); Albumin 4.2 g/dL (3.8-4.9); Albumin/Globulin Ratio 1.62 (1.60-3.17); Anion Gap 9.6 mmol/L (4.00-12.00); BUN/Creat Ratio 20.11 Ratio (12.00-20.00); Blood Urea Nitrogen 18.1 mg/dL (9.0-27.0); Calcium 9.1 mg/dL (8.7-10.3); Carbon Dioxide 26.4 mmol/L (21.6-31.8); Chol/HDL Ratio 3.46 Ratio; Globulin 2.6 g/dL (1.6-3.3); HDL Cholesterol 40.5 mg/dL (40.00-60.00); LDL Cholesterol,Calculated 86.3 mg/dL (0.0-131.0); Non-African American GFR(CKD) 89.9 (60.0-200.0); Potassium 4.4 mmol/L (3.5-5.5); Total Bilirubin 0.4 mg/dL (0.30-1.20); Total Protein 6.8 g/dL (6.2-8.2); Triglycerides 65.8 mg/dL (0.00-149.00); VLDL Calculation 13.16 mg/dL (5.00-40.00)
[2021-06-27 13:38] LABS: Prostate Specific Antigen 0.4 ng/mL (0.00-4.50); T4, Free (Free Thyroxine) 1.15 ng/dL (0.800-1.800)
== END | disposition home or self-care (01) ==
LOC: LABWHC1 07:05
PROVIDERS: ATTEND Nurse Practitioner
DX: Z00.00 Encounter for general adult medical examination without abnormal findings (principal); Z12.5 Encounter for screening for malignant neoplasm of prostate
CPT/HCPCS: 36415; 80053; 80061; 84153; 84439; 84443; 85025

== ENCOUNTER → 2022-06-02 | Outpatient (CLI) | payer MEDICARE ==
--- NOTE | 2022-06-02 11:57 | US ---
EXAMINATION TYPE: US duplex aorta DATE OF EXAM: 06/02/2022 COMPARISON: NONE CLINICAL HISTORY: Z13.6 ENCOUNTER FOR SCREENING FOR CARDIOVASCULAR D. AAA screening. Hx of smoking. H ypertension. TECHNIQUE: Multiple sonographic images of the abdominal aorta are obtained. FINDINGS: EXAM MEASUREMENTS: Abdominal Aorta: Proximal: 2.8 x 2.7 cm. Mid: 2.2 x 2.1 cm. Distal: 1.7 x 1.9 cm. Bifurcation: Unable to visualize iliac arteries. BIOINFORMATICS SPECIALIST NOTES: Exam is limited due to overlying bowel gas. Proximal aorta appears ectatic. IMPRESSION: 1. No aneurysmal dilatation, the aorta screening ultrasound.
== END | disposition home or self-care (01) ==
LOC: RADUSWWP 08:13
PROVIDERS: ATTEND Family Medicine
DX: Z13.6 Encounter for screening for cardiovascular disorders (principal); I10 Essential (primary) hypertension; Z87.891 Personal history of nicotine dependence
CPT/HCPCS: 93979

== ENCOUNTER → 2023-08-04 | Outpatient (CLI) | payer MEDICARE ==
[2023-08-04 13:18] LABS: ALT 31 U/L (10-49); AST 36 U/L (14-35)
== END | disposition home or self-care (01) ==
LOC: LABWHC1 08:00
PROVIDERS: ATTEND Podiatrist Foot & Ankle Surgery
DX: K74.60 Unspecified cirrhosis of liver (principal)
CPT/HCPCS: 36415; 84450; 84460

== ENCOUNTER → 2023-09-14 | Outpatient (CLI) | payer MEDICARE ==
[2023-09-14 13:52] LABS: ALT 28 U/L (10-49); AST 34 U/L (14-35)
== END | disposition home or self-care (01) ==
LOC: LABWHC1 07:26
PROVIDERS: ATTEND Podiatrist Foot & Ankle Surgery
DX: K74.69 Other cirrhosis of liver (principal)
CPT/HCPCS: 36415; 84450; 84460